=== PATIENT | male | born 1945 | race Caucasian/White ===

== ENCOUNTER 2024-07-16 08:35 | Day surgery (SDC) | payer MEDICARE, BC ==
[2024-07-16 10:01] VITALS: RESP 16; TEMP 97.1
[2024-07-16] MEDS: IV FLUID CONTINUATION 1,000 ML IV ONE (10:05)
[2024-07-16] MEDS: LACTATED RINGERS 1,000 ML IV SCH (10:17)
[2024-07-16] MEDS ORDERED: PROPOFOL 10 MG/ML 20 ML VIAL IV ONE (11:00)
[2024-07-16] MEDS ORDERED: LIDOCAINE HCL/PF 20 MG/ML 10 ML AMP ONE (11:00)
--- NOTE | 2024-07-16 11:15 | P.PCN ---
Date of Procedure: 07/16/24 Procedure(s) Performed: BRIEF HISTORY: Patient is a 78-year-old, pleasant, white man scheduledupo for an upper endoscopy as a part of evaluation of progressive dysphagia to solids and weight loss of 30 pounds in the last 1 year duration. PROCEDURE PERFORMED: Esophagogoscopy with multiple biopsies. PREOPERATIVE DIAGNOSIS: Progressive dysphagia to solids and weight loss of 1 year duration. IV sedation per anesthesia. PROCEDURE: After informed consent was obtained, the patient was brought into the endoscopy unit. IV sedation was administered by Anesthesia under continuous monitoring. Initially the Olympus GIF-140 video endoscope was inserted into the mouth. Esophagus intubated without any difficulty. It was gradually advanced into the distal esophagus. There was a tight distal esophageal stricture with thickened mucosal folds extending from 35 to 40 cm from the incisors and the scope could not be advanced beyond the esophageal stricture. Biopsies were done from the distal esophagus/esophageal stricture.. The rest of the esophagus appeared normal and the patient tolerated the procedure well. IMPRESSION: 1. Tight distal esophageal stricture extending from 35 to 40 cm from the incisors with thickened mucosal folds and friable mucosa suspicious for malignancy s/p multiple biopsies. 2. Scope could not be advanced through the esophageal stricture into the stomach. RECOMMENDATIONS: The findings of this examination were discussed with the patient as well as his family. He was advised to follow with the biopsy results. He will be seen in the office in 1 week. In the meantime he was advised to continue with liquids and soft food..
[2024-07-16 11:34] VITALS: BP 146/80; PULSE 89
== END 2024-07-16 11:53 | disposition home or self-care (01) ==
LOC: ORWHC2ENDO 08:35
PROVIDERS: ATTEND Internal Medicine Gastroenterology
DX: K22.2 Esophageal obstruction (principal); I10 Essential (primary) hypertension; F17.210 Nicotine dependence, cigarettes, uncomplicated; F41.9 Anxiety disorder, unspecified; K21.9 Gastro-esophageal reflux disease without esophagitis; Z79.899 Other long term (current) drug therapy
CPT/HCPCS: 88305; 43202; J2003; J2704; 88341; 88342

== ENCOUNTER → 2024-08-23 | Outpatient (CLI) | payer MEDICARE, BC ==
--- NOTE | 2024-08-23 17:39 | CA ---
Transthoracic Echo Report Name: Jaren Villalobos Age: 79 Gender: M : 1945 Exam Date: 08/23/2024 14:47 Exam Location: [facility] Ht (in): 67 Wt (lb): 182 Ordering Physician: Manjit Faith MD Attending/Referring Phys: Tool And Die Machinist Courtney Pierre RDCS Procedure CPT: Indications: Z01.818 ENCOUNTER FOR OTHER PREPROCEDURAL EXAMINAT Cardiac Hx: Technical Quality: Fair Contrast 1: Total Dose (mL): Contrast 2: Total Dose (mL): MEASUREMENTS (Male / Female) Normal Values 2D ECHO LV Diastolic Diameter PLAX 5.2 cm 4.2 - 5.9 / 3.9 - 5.3 cm LV Systolic Diameter PLAX 3.7 cm IVS Diastolic Thickness 0.7 cm 0.6 - 1.0 / 0.6 - 0.9 cm LVPW Diastolic Thickness 0.9 cm 0.6 - 1.0 / 0.6 - 0.9 cm LV Relative Wall Thickness 0.3 LVOT Diameter 2.3 cm LV Diastolic Volume MOD BP 101.7 cm??? 67 - 155 / 56 - 104 cm??? LV Systolic Volume MOD BP 43.7 cm??? 22 - 58 / 19 - 49 cm??? LV Ejection Fraction MOD BP 57.0 % >= 55 % LV Cardiac Index MOD BP 2904.4 cm???/min???m??? LV Diastolic Volume MOD 4C 109.5 cm??? LV Systolic Volume MOD 4C 47.1 cm??? LV Ejection Fraction MOD 4C 57.0 % LV Cardiac Index MOD 4C 3127.3 cm???/min???m??? LV Diastolic Length 4C 8.6 cm LV Systolic Length 4C 8.1 cm LV Diastolic Volume MOD 2C 94.0 cm??? LV Systolic Volume MOD 2C 36.0 cm??? LV Ejection Fraction MOD 2C 61.7 % LV Cardiac Index MOD 2C 2904.6 cm???/min???m??? LV Diastolic Length 2C 8.6 cm LV Systolic Length 2C 7.1 cm LA Volume 39.4 cm??? 18 - 58 / 22 - 52 cm??? LA Volume Index 19.7 cm???/m??? 16 - 28 cm???/m??? DOPPLER AV Peak Velocity 107.2 cm/s AV Peak Gradient 4.6 mmHg AV Mean Velocity 76.5 cm/s AV Mean Gradient 2.5 mmHg AV Velocity Time Integral 18.5 cm LVOT Peak Velocity 96.0 cm/s LVOT Peak Gradient 3.7 mmHg LVOT Velocity Time Integral 16.2 cm LVOT Stroke Volume 66.8 cm??? LVOT Stroke Volume Index 34.4 ml/m??? LVOT Cardiac Index 3347.0 cm???/min???m??? AV Area Cont Eq vti 3.6 cm??? AV Area Cont Eq pk 3.7 cm??? MV Area PHT 9.0 cm??? Mitral E Point Velocity 64.9 cm/s Mitral A Point Velocity 83.6 cm/s Mitral E to A Ratio 0.8 MV Deceleration Time 84.2 ms PV Peak Velocity 80.7 cm/s PV Peak Gradient 2.6 mmHg FINDINGS Left Ventricle Left ventricular ejection fraction is estimated at 55-60 %. Left ventricular wall thickness normal. Left ventricular cavity size normal. No obvious regional wall motion abnormalities. Right Ventricle Normal right ventricular size and function. Unable to estimate the right ventricular systolic pressure. Right Atrium Normal right atrial size. Left Atrium Normal left atrial size. Mitral Valve Structurally normal mitral valve. No evidence for mitral valve prolapse. No mitral stenosis. Trace mitral regurgitation.mitral annular calcification. Aortic Valve Trileaflet aortic valve. Diffuse thickening (sclerosis) of the aortic valve cusps without reduced excursion. No aortic valve stenosis or regurgitation. Tricuspid Valve Structurally normal tricuspid valve. No tricuspid stenosis. Trace tricuspid regurgitation. Pulmonic Valve Pulmonic valve not well visualized. No pulmonic stenosis. Trace pulmonic regurgitation. Pericardium No pericardial effusion. Aorta Normal size aortic root and proximal ascending aorta. CONCLUSIONS 1. Normal left ventricular size and systolic function 2. Trace mitral and tricuspid regurgitation Previewed by: Dr. Morena Ashton MD (Electronically Signed) Final Date: 23 August 2024 17:38
== END | disposition home or self-care (01) ==
LOC: RADECHMAIN 14:46
PROVIDERS: ATTEND Internal Medicine Hematology & Oncology
DX: Z01.818 Encounter for other preprocedural examination (principal)
CPT/HCPCS: 93306

== ENCOUNTER 2024-09-11 14:39 | Inpatient (IN) | payer MEDICARE, BC ==
--- NOTE | 2024-09-11 15:46 | ED ---
Recheck HPI - General Chief Complaint: Recheck/Abnormal Lab/Rx Stated Complaint: Low hemoglobin Time Seen by Provider: 09/11/24 15:42 Source: patient, family, EMS, RN notes reviewed Mode of arrival: EMS - History of Present Illness Initial Comments: This is a 79 year old male sent by Dr. Faith for low hemoglobin. 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 He began chemotherapy last Monday. States he has been having black stools for 5 weeks now which began right after an iron transfusion 5 weeks ago. States his hemoglobin has been steadily dropping since then. He states he is very weak which is abnormal for him. He needs assistance by his daughter for understanding. Denies chest pain, shortness of breath, abdominal pain. Denies blood thinners or previous abdominal surgeries. - Related Data Home Medications Medication Instructions Recorded Confirmed Fluticasone Nasal Dennard [Flonase 1 spray INHALATION DIRECTED 07/11/24 07/16/24 Nasal Dennard] Fluticasone Propion/Salmeterol 1 inh INHALATION BID 07/11/24 07/16/24 [Fluticasone-Salmeterol 250-50] Furosemide [Lasix] 40 mg PO DAILY 07/11/24 07/16/24 Losartan Potassium 100 mg PO DAILY 07/11/24 07/16/24 Omeprazole 20 mg PO DAILY 07/11/24 07/16/24 Ondansetron [Zofran] 4 mg PO Q8HR PRN 07/11/24 07/16/24 ALPRAZolam [Xanax] 0.25 mg PO BID PRN 09/11/24 09/11/24 Triamcinolone 0.1% Cream [Kenalog 1 applicatio TOPICAL BID 09/11/24 09/11/24 0.1% Cream] Allergies Allergy/AdvReac Type Severity Reaction Status Date / Time aspirin Allergy Unknown Verified 09/11/24 17:39 NSAIDS (Non-Steroidal Allergy Unknown Verified 09/11/24 17:39 Anti-Inflamma Review of Systems ROS Statement: Those systems with pertinent positive or pertinent negative responses have been documented in the HPI. ROS Other: All systems not noted in ROS Statement are negative. Past Medical History Past Medical History: GERD/Reflux, Hypertension Additional Past Medical History / Comment(s): esophogeal cancer, july 07, 2024 History of Any Multi-Drug Resistant Organisms: None Reported Past Surgical History: No Surgical Hx Reported Past Anesthesia/Blood Transfusion Reactions: No Reported Reaction Smoking Status: Current every day smoker Past Alcohol Use History: None Reported Past Drug Use History: None Reported - Past Family History Mother Family Medical History: Cancer Additional Family Medical History / Comment(s): leukemia General Exam General appearance: alert, in no apparent distress Head exam: Present: atraumatic, normocephalic, normal inspection Eye exam: Present: normal appearance, PERRL, EOMI. Absent: scleral icterus, conjunctival injection, periorbital swelling ENT exam: Present: normal exam, mucous membranes moist Neck exam: Present: normal inspection. Absent: tenderness, meningismus, lymphadenopathy Respiratory exam: Present: normal lung sounds bilaterally. Absent: respiratory distress, wheezes, rales, rhonchi, stridor Cardiovascular Exam: Present: regular rate, normal rhythm, normal heart sounds. Absent: systolic murmur, diastolic murmur, rubs, gallop, clicks GI/Abdominal exam: Present: soft, normal bowel sounds. Absent: distended, tenderness, guarding, rebound, rigid Rectal exam: Present: normal inspection, other (TURBINE ASSEMBLER Mane present for rectal examination, no gross blood present on examination) Neurological exam: Present: alert, oriented X3 Psychiatric exam: Present: normal affect, normal mood Skin exam: Present: warm, dry, intact, normal color. Absent: rash Course Vital Signs 09/11/24 09/11/24 09/11/24 14:41 16:13 16:30 Temperature 97.1 F L 97.1 F L Pulse Rate 83 69 75 Respiratory 16 16 Rate Blood Pressure 95/52 109/73 101/47 O2 Sat by Pulse 97 97 Oximetry 09/11/24 09/11/24 16:45 17:05 Temperature 96.8 F L 97.5 F L Pulse Rate 75 70 Respiratory 16 16 Rate Blood Pressure 101/44 104/51 O2 Sat by Pulse 97 97 Oximetry Medical Decision Making - Medical Decision Making Was pt. sent in by a medical professional or institution (, PA, DERRICK WORKER, urgent care, hospital, or shelter...) When possible be specific @ -Sent by Dr. Faith for low hemoglobin Did you speak to anyone other than the patient for history (EMS, parent, family, police, friend...)? What history was obtained from this source @ -Daughter supplemented history Did you review nursing and triage notes (agree or disagree)? Why? @ -I reviewed and agree with nursing and triage notes Were old charts reviewed (outside hosp., previous admission, EMS record, old EKG, old radiological studies, urgent care reports/EKG's, shelter records)? Report findings @ -No old charts were reviewed Differential Diagnosis (chest pain, altered mental status, abdominal pain women, abdominal pain men, vaginal bleeding, weakness, fever, dyspnea, syncope, headache, dizziness, GI bleed, back pain, seizure, CVA, palpatations, mental health, musculoskeletal)? @ -Differential GI Bleed: Esophageal varices, aortoenteric fistula, Aditi-Molina, gastritis, peptic ulcer disease, diverticulosis, inflammatory bowel disease, hemorrhoids, fissure, colitis, malignancy, Meckel's diverticulum, this is not meant to be an all- inclusive list. EKG interpreted by me (3pts min.). @ -As above X-rays interpreted by me (1pt min.). @ -None done CT interpreted by me (1pt min.). @ -CT abdomen pelvis reveals no definitive evidence for gastrointestinal hemorrhage, hyperemia of mucosa, mild sigmoid colon thickening, distended bladder, colonic diverticulosis U/S interpreted by me (1pt. min.). @ -None done What testing was considered but not performed or refused? (CT, X-rays, U/S, labs)? Why? @ -None What meds were considered but not given or refused? Why? @ -None Did you discuss the management of the patient with other professionals (professionals i.e. , PA, DERRICK WORKER, lab, RT, psych nurse, social media executive, tax lawyer, teacher, community service officer, director case management)? Give summary @ -I spoke with Dr. Trammell who recommends admission with consultation to oncology and GI. I then spoke with Isela from [facility] who accepts admission for low hemoglobin Was smoking cessation discussed for >3mins.? @ -No Was critical care preformed (if so, how long)? @ -No Were there social determinants of health that impacted care today? How? (Homelessness, low income, unemployed, alcoholism, drug addiction, transportation, low edu. Level, literacy, decrease access to med. care, assisted, rehab)? @ -No Was there de-escalation of care discussed even if they declined (Discuss DNR or withdrawal of care, Hospice)? DNR status @ -No What co-morbidities impacted this encounter? (DM, HTN, Smoking, COPD, CAD, Cancer, CVA, ARF, Chemo, Hep., AIDS, mental health diagnosis, sleep apnea, morbid obesity)? @ -Esophageal cancer Was patient admitted / discharged? Hospital course, mention meds given and route, prescriptions, significant lab abnormalities, going to OR and other pertinent info. @ -Admitted. This is a 79-year-old male with history of esophageal cancer presenting for low hemoglobin. Patient started chemotherapy last week, also endorses black stools for 5 weeks. Denies abdominal pain. Hemoglobin is 5.7, hematocrit 17.5. Sodium 127, BUN 37. Stool occult test positive. patient was given 2 units of red blood cells. CT abdomen pelvis reveals no definitive evidence for GI hemorrhage. I spoke with Dr. Trammell who recommends admission with consultation to oncology and GI services. I then spoke with Isela from [facility] who accepts admission. Case was discussed with my ED attending Dr. Son. Undiagnosed new problem with uncertain prognosis? @ -No Drug Therapy requiring intensive monitoring for toxicity (Heparin, Nitro, Insulin, Cardizem)? @ -No Were any procedures done? @ -No Diagnosis/symptom? @ -Low hemoglobin Acute, or Chronic, or Acute on Chronic? @ -Acute Uncomplicated (without systemic symptoms) or Complicated (systemic symptoms)? @ -Complicated Side effects of treatment? @ -No Exacerbation, Progression, or Severe Exacerbation? @ -No Poses a threat to life or bodily function? How? (Chest pain, USA, MT, pneumonia, PE, COPD, DKA, ARF, appy, cholecystitis, CVA, Diverticulitis, Homicidal, Suicidal, threat to staff... and all critical care pts) @ -Yes - Lab Data Result diagrams: 09/11/24 15:31 09/11/24 15:31 Lab Results 09/11/24 09/11/24 09/11/24 Range/Units 15:00 15:10 15:31 WBC 5.3 (3.8-10.6) k/uL RBC 2.03 L (4.30-5.90) m/uL Hgb 5.7 L* (13.0-17.5) gm/dL Hct 17.5 L* (39.0-53.0) % MCV 86.1 (80.0-100.0) fL MCH 28.2 (25.0-35.0) pg MCHC 32.8 (31.0-37.0) g/dL RDW 16.8 H (11.5-15.5) % Plt Count 276 (150-450) k/uL MPV 9.5 Neutrophils % 69 % Lymphocytes % 29 % Monocytes % 1 % Eosinophils % 1 % Basophils % 0 % Neutrophils # 3.6 (1.3-7.7) k/uL Lymphocytes # 1.5 (1.0-4.8) k/uL Monocytes # 0.0 (0-1.0) k/uL Eosinophils # 0.0 (0-0.7) k/uL Basophils # 0.0 (0-0.2) k/uL Anisocytosis Slight PT (10.0-12.5) sec INR (<1.2) APTT (22.0-30.0) sec Sodium (137-145) mmol/L Potassium (3.5-5.1) mmol/L Chloride (98-107) mmol/L Carbon Dioxide (22-30) mmol/L Anion Gap mmol/L BUN (9-20) mg/dL Creatinine (0.66-1.25) mg/dL Est GFR (CKD-EPI)AfAm (>60 ml/min/1.73 sqM) Est GFR (CKD-EPI)NonAf (>60 ml/min/1.73 sqM) Glucose (74-99) mg/dL Calcium (8.4-10.2) mg/dL Total Bilirubin (0.2-1.3) mg/dL AST (17-59) U/L ALT (4-49) U/L Alkaline Phosphatase (38-126) U/L Total Protein (6.3-8.2) g/dL Albumin (3.5-5.0) g/dL Stool Occult Blood (Negative) Blood Type B Positive Blood Type Confirm B Positive Blood Type Recheck No Previous Record Bld Type Recheck Status CABO Indicated Antibody Screen NEGATIVE Crossmatch See Detail Spec Expiration Date 09/14/2024 - 229909/11/24 09/11/2425 Range/Units 15:31 15:47 17:12 WBC (3.8-10.6) k/uL RBC (4.30-5.90) m/uL Hgb (13.0-17.5) gm/dL Hct (39.0-53.0) % MCV (80.0-100.0) fL MCH (25.0-35.0) pg MCHC (31.0-37.0) g/dL RDW (11.5-15.5) % Plt Count (150-450) k/uL MPV Neutrophils % % Lymphocytes % % Monocytes % % Eosinophils % % Basophils % % Neutrophils # (1.3-7.7) k/uL Lymphocytes # (1.0-4.8) k/uL Monocytes # (0-1.0) k/uL Eosinophils # (0-0.7) k/uL Basophils # (0-0.2) k/uL Anisocytosis PT 9.8 L (10.0-12.5) sec INR 0.9 (<1.2) APTT 23.5 (22.0-30.0) sec Sodium 127 L (137-145) mmol/L Potassium 5.9 H (3.5-5.1) mmol/L Chloride 98 (98-107) mmol/L Carbon Dioxide 25 (22-30) mmol/L Anion Gap 4 mmol/L BUN 37 H (9-20) mg/dL Creatinine 0.68 (0.66-1.25) mg/dL Est GFR (CKD-EPI)AfAm >90 (>60 ml/min/1.73 sqM) Est GFR (CKD-EPI)NonAf >90 (>60 ml/min/1.73 sqM) Glucose 99 (74-99) mg/dL Calcium 8.0 L (8.4-10.2) mg/dL Total Bilirubin 0.6 (0.2-1.3) mg/dL AST 34 (17-59) U/L ALT 25 (4-49) U/L Alkaline Phosphatase 112 (38-126) U/L Total Protein 5.2 L (6.3-8.2) g/dL Albumin 2.6 L (3.5-5.0) g/dL Stool Occult Blood Positive (Negative) Blood Type Blood Type Confirm Blood Type Recheck Bld Type Recheck Status Antibody Screen Crossmatch Spec Expiration Date - EKG Data -: EKG Interpreted by Me EKG Comments: EKG reveals normal sinus rhythm with occasional changes. Ventricular rate 72 bpm, [place] interval 194, QRS duration 76, QT/QTc 403/428 Disposition Clinical Impression: Low hemoglobin, Black stools Disposition: ADMITTED IP TO THIS HOSP Referrals: Jose Miguel Crabtree MD [Primary Care Provider] - 1-2 days Time of Disposition: 18:23
[2024-09-11 15:55] LABS: ALT 25 U/L (4-49); AST 34 U/L (17-59); African American GFR (CKD) >90 (>60 ml/min/1.73 sqM); Albumin 2.6 g/dL (3.5-5.0); Alkaline Phosphatase 112 U/L (38-126); Anion Gap 4 mmol/L; Blood Urea Nitrogen 37 mg/dL (9-20); Carbon Dioxide 25 mmol/L (22-30); Chloride 98 mmol/L (98-107); Glucose 99 mg/dL (74-99); Non-African American GFR(CKD) >90 (>60 ml/min/1.73 sqM); Sodium 127 mmol/L (137-145); Total Bilirubin 0.6 mg/dL (0.2-1.3); Total Protein 5.2 g/dL (6.3-8.2)
[2024-09-11 16:01] LABS: Anisocytosis Slight; Basophils % (A) 0 %; Eosinophils % (A) 1 %; Lymphocytes # (A) 1.5 k/uL (1.0-4.8); Lymphocytes % (A) 29 %; MCH 28.2 pg (25.0-35.0); MCHC 32.8 g/dL (31.0-37.0); MCV 86.1 fL (80.0-100.0); Mean Platelet Volume 9.5; Monocytes % (A) 1 %; Neutrophils # (A) 3.6 k/uL (1.3-7.7); Neutrophils % (A) 69 %; Platelet Count 276 k/uL (150-450); RBC 2.03 m/uL (4.30-5.90); RDW 16.8 % (11.5-15.5); WBC 5.3 k/uL (3.8-10.6)
[2024-09-11 16:03] LABS: HCT 17.5 % (39.0-53.0); HGB 5.7 gm/dL (13.0-17.5)
[2024-09-11 16:13] LABS: Potassium 5.9 mmol/L (3.5-5.1)
[2024-09-11] MEDS ORDERED: ONDANSETRON 4 MG/2 ML VIAL IVP PRN (18:18)
[2024-09-11] MEDS ORDERED: NALOXONE 0.4 MG/ML 1 ML VIAL IV PRN (18:18)
[2024-09-11 18:47] LABS: INR 0.9 (<1.2); Partial Thromboplastin Time 23.5 sec (22.0-30.0); Prothrombin Time 9.8 sec (10.0-12.5)
[2024-09-11] MEDS: ACETAMINOPHEN TAB 500 MG TAB PO STA (18:52)
[2024-09-11] MEDS: PANTOPRAZOLE 40 MG/10 ML VIAL IV ONE (18:53)
--- NOTE | 2024-09-11 19:19 | CT ---
EXAMINATION TYPE: CT noncontrasted abdomen and pelvis. CT angio abdomen pelvis DATE OF EXAM: 09/11/2024 6:41 PM COMPARISON: None. CLINICAL INDICATION: Male, 79 years old with history of black stools, TECHNIQUE: CT angio abdomen pelvis CT noncontrast abdomen pelvis followed by CT angiogram. Multiple thin slice sub-millimeter images were obtained before and after administration of contrast. 3-D reconstructed images and maximum intensity projection images were obtained. CT angio abdomen p rito CT Contrast: Contrast used:100 ml mL of Isovue 370 with IV Contrast, Oral contrast used: without Oral Contrast None CT DLP: 2747.5 mGycm, Automated exposure control for dose reduction was used. FINDINGS: CTA Abdomen and pelvis: The abdominal aorta does not demonstrate aneurysmal dilatation. Atherosclero tic plaquing is identified within the abdominal aorta. The origins of the superior mesenteric artery , renal arteries, inferior mesenteric artery, and celiac axis are patent. The iliac vessels are norm al in morphology LOWER CHEST: Trace bilateral pleural effusions. Circumferential thickening of the distal esophagus wi th hyperemia. There is a left paraesophageal lymph node measuring up to 13 mm LIVER: Unremarkable GALLBLADDER AND BILE DUCTS: Multiple gallstones are in the gallbladder lumen somewhat trapped gas. PANCREAS: Unremarkable. SPLEEN: Unremarkable. ADRENAL GLANDS: Unremarkable. KIDNEYS AND URETERS: No evidence of hydronephrosis or renal calculus. The ureters are unremarkable. PELVIS BLADDER: Suspected large left lateral posterior bladder diverticula. REPRODUCTIVE: Prostate is enlarged in size measuring ??cm in transverse dimension. ABDOMEN & PELVIS STOMACH AND BOWEL: Evaluation of the gastrointestinal tract demonstrates no evidence of high density hemorrhage on arterial phase or pooling of blood on delayed phases. No evidence of bowel obstruction. Scattered colonic diverticula. Hyperemia of the gastric mucosa with wall thickening particularly the gastric antrum and duodenal bulb. Large amount of stool is in the cecum and ascending colon. PERITONEUM: No evidence of pneumoperitoneum or free fluid. VASCULATURE: No evidence of aortic aneurysm. MUSCULOSKELETAL: Moderate disc degeneration changes are present throughout the thoracolumbar spine. D egeneration changes of the hips with joint space tearing or perforation subchondral cystic change. LYMPH NODES: No gross evidence for lymphadenopathy. SOFT TISSUE/ABDOMINAL WALL: Bilateral fat-containing inguinal hernias. IMPRESSION: 1. No definitive evidence for gastrointestinal hemorrhage. 2. Hyperemia of the gastric mucosa correlate for gastritis with wall thickening correlate for gastri tis. Consider endoscopy for evaluation. 3. Circumferential wall thickening of the distal esophagus with hyperemia of the mucosa. Enlarged pa raesophageal lymph node is present which could be reactive. Short-term follow-up up to exclude malign neelima recommended. 4. There is some mild thickening of the sigmoid colon with multiple diverticula present. No evidence for hemorrhage. Correlate for colitis. 5. Distended bladder with bladder diverticula 6. Colonic diverticulosis. 7. Trace bilateral pleural effusions. 8. Colonic diverticulosis. 9. Cholelithiasis. [facility], , 09/11/2024 7:17 PM
[2024-09-11] MEDS: PANTOPRAZOLE 40 MG/10 ML VIAL IV SCH (23:00)
[2024-09-12 07:08] LABS: Basophils % (A) 0 %; Eosinophils % (A) 1 %; HCT 24.8 % (39.0-53.0); Lymphocytes # (A) 1.1 k/uL (1.0-4.8); Lymphocytes % (A) 34 %; MCH 30.1 pg (25.0-35.0); MCHC 34.4 g/dL (31.0-37.0); MCV 87.6 fL (80.0-100.0); Mean Platelet Volume 9.2; Monocytes % (A) 1 %; Neutrophils % (A) 64 %; Platelet Count 175 k/uL (150-450); RBC 2.83 m/uL (4.30-5.90); RDW 15.9 % (11.5-15.5); WBC 3.2 k/uL (3.8-10.6)
[2024-09-12 08:35] LABS: HGB 8.5 gm/dL (13.0-17.5)
[2024-09-12 08:37] LABS: African American GFR (CKD) >90 (>60 ml/min/1.73 sqM); Anion Gap 2 mmol/L; Blood Urea Nitrogen 27 mg/dL (9-20); Calcium 7.9 mg/dL (8.4-10.2); Carbon Dioxide 26 mmol/L (22-30); Chloride 100 mmol/L (98-107); Glucose 90 mg/dL (74-99); Non-African American GFR(CKD) >90 (>60 ml/min/1.73 sqM); Sodium 128 mmol/L (137-145)
[2024-09-12] MEDS: ACETAMINOPHEN TAB 325 MG TAB PO PRN (11:41)
[2024-09-12] MEDS: SODIUM FERRIC GLUCONAT-SUCROSE 125 MG in SODIUM CHLORIDE 0.9% 100 ML IVPB SCH (13:30)
[2024-09-12] MEDS ORDERED: TEMAZEPAM 15 MG CAP PO PRN (14:02)
--- NOTE | 2024-09-12 14:05 | P.CONS ---
History of Present Illness - Reason for Consult Consult date: 09/12/24 Low hemoglobin, black stools Requesting physician: Verenice Pearson - Chief Complaint Anemia - History of Present Illness This a pleasant 79-year-old male with recent diagnosis of poorly differentiated adenocarcinoma of esophagus. He underwent EGD on 07/16/2024 with findings of tight esophageal stricture with thickened mucosal folds and friable mucosa suspicious for malignancy and scope was not able to be advanced through the esophageal stricture into the stomach. Patient was referred outpatient to oncology. He follows with Dr. Alfaro. He is also following with Dr. Vargas radiation oncologist and now Dr. Garcia as well out of [place]. States he started his first round of chemo this past Monday. He has been getting iron infusions and since his iron infusions he has been having black stool. He had blood work done yesterday and was told to come to the emergency department for low hemoglobin. Hemoglobin on admission was 5.7 hematocrit 17.5 platelet count 276,000 INR 0.9. Gastroenterology was consulted for anemia with black stools. He received 2 units of blood with a repeat home hemoglobin today of 8.5. Stool occult blood was positive. He denies any significant abdominal pain, no nausea or vomiting. Review of Systems REVIEW OF SYSTEMS: CARDIOPULMONARY: No chest pain or shortness of breath. Gastrointestinal: No abdominal pain. No nausea or vomiting. No hematemesis, coffee-ground emesis. No rectal bleeding. Reported black stool. GENITOURINARY: No dysuria or hematuria. MUSCULOSKELETAL: Reports normal range of motion. SKIN: No rashes. No jaundice. ENDOCRINE: No chills, fevers. No excessive weight gain or loss. No polydipsia or polyuria. PSYCHIATRIC: Unremarkable. NEUROLOGY: No change in mental status. Denies dizziness, headache. ENT: Vision unremarkable. CONSTITUTIONAL: Weight loss secondary to esophageal cancer.. No fever, chills, night sweats. Past Medical History Past Medical History: GERD/Reflux, Hypertension Additional Past Medical History / Comment(s): esophogeal cancer, july 07, 2024 History of Any Multi-Drug Resistant Organisms: None Reported Past Surgical History: No Surgical Hx Reported Past Anesthesia/Blood Transfusion Reactions: No Reported Reaction Smoking Status: Current every day smoker Past Alcohol Use History: None Reported Past Drug Use History: None Reported - Past Family History Mother Family Medical History: Cancer Additional Family Medical History / Comment(s): leukemia Medications and Allergies Home Medications Medication Instructions Recorded Confirmed Type Fluticasone Nasal [place] [Flonase 1 spray EA NOSTRIL BID 07/11/24 09/11/24 History Nasal [place]] Fluticasone Propion/Salmeterol 1 puff INHALATION RT-BID 07/11/24 09/11/24 History [Fluticasone-Salmeterol 250-50] Furosemide [Lasix] 40 mg PO DAILY 07/11/24 09/11/24 History Losartan Potassium 100 mg PO DAILY 07/11/24 09/11/24 History Omeprazole 20 mg PO DAILY 07/11/24 09/11/24 History Ondansetron [Zofran] 8 mg PO Q8HR PRN 07/11/24 09/11/24 History ALPRAZolam [Xanax] 0.25 mg PO BID PRN 09/11/24 09/11/24 History Triamcinolone 0.1% Cream [Kenalog 1 applicatio TOPICAL BID 09/11/24 09/11/24 History 0.1% Cream] Allergies Allergy/AdvReac Type Severity Reaction Status Date / Time aspirin Allergy Unknown Verified 09/11/24 17:39 NSAIDS (Non-Steroidal Allergy Unknown Verified 09/11/24 17:39 Anti-Inflamma Physical Exam Vitals: Vital Signs Temp Pulse Resp BP Pulse Ox 09/12/24 08:28 92 20 99/46 94 L 09/12/24 06:29 92 16 102/57 98 09/12/24 04:00 90 16 99/50 99 09/12/24 02:00 80 15 116/46 96 09/12/24 00:00 75 16 98/44 97 09/11/24 22:57 97.9 F 81 17 107/51 99 09/11/24 21:13 97.6 F 84 16 102/51 100 09/11/24 20:53 97.6 F 68 17 91/56 99 09/11/24 20:43 98.2 F 77 15 105/53 95 09/11/24 19:49 98.3 F 80 16 99/45 09/11/24 19:27 97.7 F 74 16 109/78 97 09/11/24 17:05 97.5 F L 70 16 104/51 97 09/11/24 16:45 96.8 F L 75 16 101/44 97 09/11/24 16:30 97.1 F L 75 16 101/47 97 09/11/24 16:13 69 109/73 09/11/24 14:41 97.1 F L 83 16 95/52 97 Intake and Output 09/11/24 09/12/24 09/12/24 22:59 06:59 14:59 Intake Total 620 Output Total 400 Balance 620 -400 Intake: Blood Product 620 Rc As-1 Unit 310 [id number] Rc As-1 Unit 310 [id number] Output: Other 400 General appearance: The patient is alert, oriented, appears in no acute distress. HET: Head is normocephalic and atraumatic. Conjunctiva pink. Sclera anicteric. Neck: Supple without lymphadenopathy. Trachea midline. Heart: Regular. Lungs: Equal expansion, normal respiratory effort. Abdomen: Soft, nontender, nondistended. Skin: No rashes. No jaundice. Extremities: Normal skin color and turgor. No pedal edema. Neurological: No focal deficits. Alert and oriented x3. Results CBC & Chem 7: 09/12/24 06:21 09/12/24 06:21 Labs: Abnormal Lab Results - Last 24 Hours (Table) 09/11/24 09/11/24 09/11/24 Range/Units 15:00 15:31 15:31 WBC (3.8-10.6) k/uL RBC 2.03 L (4.30-5.90) m/uL Hgb 5.7 L* (13.0-17.5) gm/dL Hct 17.5 L* (39.0-53.0) % RDW 16.8 H (11.5-15.5) % PT (10.0-12.5) sec Sodium 127 L (137-145) mmol/L Potassium 5.9 H (3.5-5.1) mmol/L BUN 37 H (9-20) mg/dL Calcium 8.0 L (8.4-10.2) mg/dL Total Protein 5.2 L (6.3-8.2) g/dL Albumin 2.6 L (3.5-5.0) g/dL Crossmatch See Detail 0209/12/24 09/12/24 Range/Units 17:12 06:21 06:21 WBC 3.2 L (3.8-10.6) k/uL RBC 2.83 L (4.30-5.90) m/uL Hgb 8.5 L D (13.0-17.5) gm/dL Hct 24.8 L (39.0-53.0) % RDW 15.9 H (11.5-15.5) % PT 9.8 L (10.0-12.5) sec Sodium 128 L (137-145) mmol/L Potassium (3.5-5.1) mmol/L BUN 27 H (9-20) mg/dL Calcium 7.9 L (8.4-10.2) mg/dL Total Protein (6.3-8.2) g/dL Albumin (3.5-5.0) g/dL Crossmatch Comments: CTA abdomen pelvis reports no definitive evidence for gastrointestinal hem orrhage. Hyperemia of the gastric mucosa correlate for gastritis with wall thickening correlate for gastritis consider endoscopy for further evaluation. Circumferential wall thickening of the distal esophagus with hyperemia of the mucosa. Enlarged paraesophageal lymph node is present which could be reactive. Short-term follow-up to exclude malignancy recommended. There is some mild thickening of the sigmoid colon with multiple diverticula present. No evidence of hemorrhage. Correlate for colitis. Distended bladder with bladder diverticula. Colonic diverticulosis. Trace bilateral pleural effusions. Colonic diverticulosis and cholelithiasis. Assessment and Plan (1) Anemia Narrative/Plan: 79-year-old male recently diagnosed with esophageal cancer undergoing chemotherapy with his first treatment this past Monday had follow-up blood work noted to have a low hemoglobin and was sent in for blood transfusion. He has been reportedly having black stools since he had his second iron infusion. Likely he is having some bleeding and/or oozing from esophageal mass however would not recommend endoscopic evaluation at this time and would treat with medical management and transfuse as needed. Current Visit: Yes Status: Acute Code(s): D64.9 - ANEMIA, UNSPECIFIED SNOMED Code(s): 128050991 (2) Esophageal cancer Current Visit: Yes Status: Acute Code(s): C15.9 - MALIGNANT NEOPLASM OF ESOPHAGUS, UNSPECIFIED SNOMED Code(s): 959507296 Plan: 1. Continue symptomatic and supportive care 2. Daily CBC, transfuse for hemoglobin less than 7 3. Protonix 40 mg daily 4. Recommend full liquid diet 5. No plans on endoscopic evaluation, treat anemia with medical management, tra nsfuse as needed 6. Oncology on consultation appreciate their recommendations Thank you for this consultation, we will continue to follow. Dr. Gerard Aquino I agree with the dictator's note, documented as a scribe by Mary Marsh.
[2024-09-12] MEDS: NICOTINE 14MG/24HR PATCH TRANSDERM SCH (14:33)
[2024-09-12] MEDS ORDERED: ALPRAZolam 0.25 MG TAB PO PRN (14:35)
[2024-09-12] MEDS: ZINC OXIDE PASTE (Z-GUARD) 1 APPLIC TOPICAL SCH (14:36)
[2024-09-12] MEDS: FUROSEMIDE 40 MG TAB PO SCH (14:36)
--- NOTE | 2024-09-12 19:42 | P.CONS ---
History of Present Illness - Reason for Consult Consult date: 09/12/24 anemia, esophageal cancer Requesting physician: Verenice Pearson - Chief Complaint low hgb - History of Present Illness Mr Arceo is a 79 year old male with a significant history of esophageal cancer, who follows with Dr. Faith. The patient states that he had noted a change in his swallowing, in retrospect since about 02/27. He was having difficulty with large solid boluses, such as meat, where he seemed to have increased difficulty getting them down. In addition after eating such foods, he will typically developed significant regurgitation. The patient therefore switched his diet to soft her, and semisolid foods. He lost a significant amount of weight, in the range of around 40+ pounds. He did mention this to his PCP, who then referred him to GI. The patient had an EGD on 07/16/24. He was found to have a tight distal esophageal stricture with thickened mucosal for some friable mucosa. The scope could not be advanced beyond the stricture. Biopsy was po sitive for invasive poorly differentiated adenocarcinoma. Staining indicated low probability of MSI high. HER-2 was 2+, with fish pending. The patient had additional workup with a PET scan, that showed uptake in the primary site, and in small periesophageal lymph nodes. There was note of mild uptake in a left retroperitoneal node that was nonspecific. There was no other evidence of distant disease. They were advised that given the nonspecific description of the left retroperitoneal node, it would be reasonable to refer him to radiation oncology to be assessed for concurrent chemoradiation with curative intent. The rationale for the same, as well as logistics were discussed in detail. I also discussed the standard chemotherapy regimen of weekly carboplatin and Taxol to be given concurrently with radiation. After further discussion pt was referred for proton beam therapy, currently awaiting to start, in the meantime he was started on systemic treatment with Carbo/taxol/hercpetin, completing cycle 1 on 09/06/24. Patient also received 2 doses of fereheme, last dose on 08/19/24. Patient was evaluated in clinic on 09/11 was noted to have a hemoglobin of 6.0, patient is also complaining of confusion at which time he was presented to the emergency room for further evaluation. Upon admit hemoglobin is noted at 5.7, 2 units PRBCs were given. Repeat hemoglobin today 8.5. WBC 3.2, platelets 175,000. Creatinine 0.70, GFR greater than 90. Bilirubin LFTs WNL. CTA abdomen pelvis showing no evidence for gastrointestinal hemorrhage. Hyperemia of the gastric mucosa with wall thickening. Surgical ventral wall thickening of the distal esophagus with hyperemia of the mucosa. Mild thickening of the sigmoid colon with multiple diverticula present. Distended bladder with bladder di verticula. Colonic diverticulosis, and cholelithiasis. Patient does report having melanotic stools after receiving IV iron. GI consulted. Patient is alert and answering questions appropriately. Denies pain. He does report he has a decubitus ulcer on his buttocks, wound care has been consulted. Review of Systems 10 point ROS is negative except as stated in the HPI Past Medical History Past Medical History: GERD/Reflux, Hypertension Additional Past Medical History / Comment(s): esophogeal cancer, july 07, 2024 History of Any Multi-Drug Resistant Organisms: None Reported Past Surgical History: No Surgical Hx Reported Past Anesthesia/Blood Transfusion Reactions: No Reported Reaction Smoking Status: Current every day smoker Past Alcohol Use History: None Reported Past Drug Use History: None Reported - Past Family History Mother Family Medical History: Cancer Additional Family Medical History / Comment(s): leukemia Medications and Allergies Home Medications Medication Instructions Recorded Confirmed Type Fluticasone Nasal [place] [Flonase 1 spray EA NOSTRIL BID 07/11/24 09/11/24 History Nasal [place]] Fluticasone Propion/Salmeterol 1 puff INHALATION RT-BID 07/11/24 09/11/24 History [Fluticasone-Salmeterol 250-50] Furosemide [Lasix] 40 mg PO DAILY 07/11/24 09/11/24 History Losartan Potassium 100 mg PO DAILY 07/11/24 09/11/24 History Omeprazole 20 mg PO DAILY 07/11/24 09/11/24 History Ondansetron [Zofran] 8 mg PO Q8HR PRN 07/11/24 09/11/24 History ALPRAZolam [Xanax] 0.25 mg PO BID PRN 09/11/24 09/11/24 History Triamcinolone 0.1% Cream [Kenalog 1 applicatio TOPICAL BID 09/11/24 09/11/24 History 0.1% Cream] Allergies Allergy/AdvReac Type Severity Reaction Status Date / Time aspirin Allergy Unknown Verified 09/11/24 17:39 NSAIDS (Non-Steroidal Allergy Unknown Verified 09/11/24 17:39 Anti-Inflamma Physical Exam Vitals: Vital Signs Temp Pulse Resp BP Pulse Ox 09/12/24 08:28 92 20 99/46 94 L 09/12/24 06:29 92 16 102/57 98 09/12/24 04:00 90 16 99/50 99 09/12/24 02:00 80 15 116/46 96 09/12/24 00:00 75 16 98/44 97 09/11/24 22:57 97.9 F 81 17 107/51 99 09/11/24 21:13 97.6 F 84 16 102/51 100 09/11/24 20:53 97.6 F 68 17 91/56 99 09/11/24 20:43 98.2 F 77 15 105/53 95 09/11/24 19:49 98.3 F 80 16 99/45 09/11/24 19:27 97.7 F 74 16 109/78 97 09/11/24 17:05 97.5 F L 70 16 104/51 97 09/11/24 16:45 96.8 F L 75 16 101/44 97 09/11/24 16:30 97.1 F L 75 16 101/47 97 09/11/24 16:13 69 109/73 09/11/24 14:41 97.1 F L 83 16 95/52 97 Intake and Output 09/11/24 09/12/24 09/12/24 22:59 06:59 14:59 Intake Total 620 Output Total 400 Balance 620 -400 Intake: Blood Product 620 As-1 Unit 310 [id number] As-1 Unit 310 [id number] Output: Other 400 - Constitutional General appearance: average body habitus, no acute distress - EENT Eyes: anicteric sclerae, EOMI ENT: hearing grossly normal - Respiratory breathing is even and unlabored - Cardiovascular skin warm and dry - Gastrointestinal General gastrointestinal: soft, no tenderness - Integumentary Integumentary: no cyanotic, pale - Neurologic Neurologic: CNII-XII intact - Musculoskeletal Musculoskeletal: strength equal bilaterally Results CBC & Chem 7: 09/12/24 06:21 09/12/24 06:21 Labs: Abnormal Lab Results - Last 24 Hours (Table) 09/11/24 09/11/24 09/11/24 Range/Units 15:00 15:31 15:31 WBC (3.8-10.6) k/uL RBC 2.03 L (4.30-5.90) m/uL Hgb 5.7 L* (13.0-17.5) gm/dL Hct 17.5 L* (39.0-53.0) % RDW 16.8 H (11.5-15.5) % PT (10.0-12.5) sec Sodium 127 L (137-145) mmol/L Potassium 5.9 H (3.5-5.1) mmol/L BUN 37 H (9-20) mg/dL Calcium 8.0 L (8.4-10.2) mg/dL Total Protein 5.2 L (6.3-8.2) g/dL Albumin 2.6 L (3.5-5.0) g/dL Crossmatch See Detail 09/11/24 09/12/24 09/12/24 Range/Units 17:12 06:21 06:21 WBC 3.2 L (3.8-10.6) k/uL RBC 2.83 L (4.30-5.90) m/uL Hgb 8.5 L D (13.0-17.5) gm/dL Hct 24.8 L (39.0-53.0) % RDW 15.9 H (11.5-15.5) % PT 9.8 L (10.0-12.5) sec Sodium 128 L (137-145) mmol/L Potassium (3.5-5.1) mmol/L BUN 27 H (9-20) mg/dL Calcium 7.9 L (8.4-10.2) mg/dL Total Protein (6.3-8.2) g/dL Albumin (3.5-5.0) g/dL Crossmatch CT scan - abdomen: report reviewed CT scan - pelvis: report reviewed Assessment and Plan (1) Anemia Current Visit: Yes Status: Acute Priority: High Code(s): D64.9 - ANEMIA, UNSPECIFIED SNOMED Code(s): 043115966 (2) Black stools Current Visit: Yes Status: Acute Priority: High Code(s): K92.1 - [place] SNOMED Code(s): 943916154 (3) Esophageal cancer Current Visit: Yes Status: Acute Priority: High Code(s): C15.9 - MALIGNANT NEOPLASM OF ESOPHAGUS, UNSPECIFIED SNOMED Code(s): 081968189 (4) Low hemoglobin Current Visit: Yes Status: Acute Priority: High Code(s): D64.9 - ANEMIA, UNSPECIFIED SNOMED Code(s): 863956642 Plan: Normocytic anemia, melena: Patient was evaluated in clinic on 09/11 was noted to have a hemoglobin of 6.0, patient was- also complaining of confusion at which time he was presented to the emergency room for further evaluation. Patient does report having melanotic stools after receiving IV iron. Recieved 2 doses feraheme, last dose on 08/19/24 -Upon admit hemoglobin is noted at 5.7, 2 units PRBCs were given. Repeat hemoglobin today 8.5. WBC 3.2, platelets 175,000. -CTA abdomen pelvis showing no evidence for gastrointestinal hemorrhage. Hyperemia of the gastric mucosa with wall thickening. Surgical ventral wall thickening of the distal esophagus with hyperemia of the mucosa. Mild thickening of the sigmoid colon with multiple diverticula present. Distended bladder with bladder diverticula. Colonic diverticulosis, and cholelithiasis. -Iron studies ordered. Parenteral iron ordered x 3 doses -Continue to monitor CBC, transfuse for hgb < 7 or if symptomatic Esophageal carcinoma: -Oncology history as dictated in the HPI -Plan was to initiate concurrent proton beam therapy, currently awaiting to start, in the meantime he was started on systemic treatment with Carbo/taxol/hercpetin, completing cycle 1 on 09/06/24
[2024-09-12] MEDS: SYMBICORT 80-4.5 MCG INHALER INHALATION SCH (20:17)
[2024-09-12] MEDS: ALPRAZolam 0.25 MG TAB PO PRN (20:32)
[2024-09-12] MEDS: MELATONIN 5 MG TABLET PO SCH (20:32)
[2024-09-12] MEDS: TRIAMCINOLONE 0.1% CREAM 80 GM TUBE TOPICAL SCH (20:33)
[2024-09-12 22:45] LABS: % Iron Saturation 85.94 (15.00-50.00)
[2024-09-12] MEDS: FLUTICASONE NASAL 50MCG/SPRAY 16GM BTL EA NOSTRIL SCH (23:22)
--- NOTE | 2024-09-13 01:29 | HP ---
HISTORY AND PHYSICAL CHIEF COMPLAINT: Anemia. HISTORY OF PRESENT ILLNESS: This 79-year-old gentleman with a past medical history of multiple medical problems including recently diagnosed stage III esophageal cancer, was found to have anemia. The patient has some black stools and the patient was sent to [facility] by Dr. Faith. The evaluation showed hemoglobin 5.7 and the patient received 2 units of transfusion and hemoglobin is 8.5. There is no history of any fever, rigors, or chills at this time. The patient is awaiting proton beam treatment from elsewhere. PAST MEDICAL HISTORY: History of recently diagnosed of esophageal cancer. Rest of the history and rest of the chart are also reviewed. HOME MEDICATIONS: Reviewed include fluticasone spray. Rest of medications reviewed. ALLERGIES: Aspirin. FAMILY HISTORY: History of leukemia. SOCIAL HISTORY: History of smoking. REVIEW OF SYSTEMS: Fourteen-point review of systems is negative except as mentioned earlier. PHYSICAL EXAMINATION: VITAL SIGNS: Pulse is 92, blood pressure 111/52, and respirations 18. HEENT: Conjunctivae pale. NECK: No JVD. CARDIOVASCULAR: S1, S2. ABDOMEN: Soft and nontender. LEGS: No edema. NERVOUS SYSTEM: Nonfocal. LABORATORY DATA: WBC 3.2 and hemoglobin 8.4. Rest of labs are noted. ASSESSMENT: 1. Acute blood loss anemia secondary from gastrointestinal bleed. 2. Recently diagnosed esophageal cancer, stage IV. 3. Hypertension. 4. Gastroesophageal reflux disease. 5. History of nicotine dependence. 6. Anxiety. RECOMMENDATIONS AND DISCUSSION: This 79-year-old gentleman, presented with multiple complex medical issues. The patient already received 2 units of transfusion. I would recommend Hematology/Oncology as well as Gastroenterology consultations. Abdominal pelvis CTA was done, which showed no definite evidence of gastrointestinal hemorrhage, but other findings suggestive of esophageal carcinoma. Overall prognosis extremely guarded, which I discussed at length with the daughter at the bedside and further recommendations to follow. Repeat labs will be ordered. MMODL / IJN: [id number] /
[2024-09-13 06:55] LABS: Basophils % (A) 1 %; Eosinophils # (A) 0.1 k/uL (0-0.7); Eosinophils % (A) 3 %; Lymphocytes # (A) 1.6 k/uL (1.0-4.8); Lymphocytes % (A) 54 %; MCH 29.5 pg (25.0-35.0); MCHC 33.3 g/dL (31.0-37.0); MCV 88.7 fL (80.0-100.0); Monocytes # (A) 0.1 k/uL (0-1.0); Monocytes % (A) 2 %; Neutrophils # (A) 1.1 k/uL (1.3-7.7); Neutrophils % (A) 39 %; Platelet Count 169 k/uL (150-450); RBC 2.71 m/uL (4.30-5.90); RDW 15.6 % (11.5-15.5); WBC 2.9 k/uL (3.8-10.6)
[2024-09-13 07:18] LABS: ALT 23 U/L (4-49); AST 22 U/L (17-59); African American GFR (CKD) >90 (>60 ml/min/1.73 sqM); Albumin 2.1 g/dL (3.5-5.0); Alkaline Phosphatase 105 U/L (38-126); Anion Gap 3 mmol/L; Blood Urea Nitrogen 19 mg/dL (9-20); Calcium 7.6 mg/dL (8.4-10.2); Carbon Dioxide 29 mmol/L (22-30); Chloride 96 mmol/L (98-107); Glucose 85 mg/dL (74-99); Non-African American GFR(CKD) >90 (>60 ml/min/1.73 sqM); Potassium 4.5 mmol/L (3.5-5.1); Sodium 128 mmol/L (137-145); Total Bilirubin 0.6 mg/dL (0.2-1.3); Total Protein 4.4 g/dL (6.3-8.2)
[2024-09-13] MEDS ORDERED: FLUTICASONE NASAL 50MCG/SPRAY 16GM BTL EA NOSTRIL SCH ×2 (09:00)
[2024-09-13] MEDS ORDERED: LOSARTAN 50 MG TAB PO SCH (09:00)
--- NOTE | 2024-09-13 09:22 | P.CONS ---
History of Present Illness - Reason for Consult Consult date: 09/13/24 wound care - History of Present Illness This is a 79-year-old patient with a history of stage III esophageal cancer presenting with a stage II pressure ulcer to the right buttocks. Family states that the ulceration has been there for few weeks they have been utilizing monkey butt to the site which has improving until he was hospitalized. Patient has a stage II pressure ulcer to the right buttocks measuring approximately 0.4 x 0.3 x 0.2 cm with granulation and minimal slough noted to the wound bed. The periwound does show excoriation. Patient states that due to his reflux he is unable to lay down. He does spend the majority of his time sitting up in a chair including sleeping. Discussed the importance of utilizing air-filled cushion while sitting patient and family verbalized understanding. Review Of Systems: Constitutional: No fever, no chills, no night sweats. No weight change. No weakness, fatigue or lethargy. No daytime sleepiness. Integumentary:reports wounds, no lesions. No rash or pruritus. No unusual bruising. No change in hair or nails. Physical exam: General Appearance: Alert, cooperative, no distress, appears stated age. Skin: See HPI all other Skin color, texture, tugor normal, no rashes or lesions. Neurologic: Alert oriented x3 Assessment: 1. Stage II pressure ulcer right buttocks 2. Stage I pressure ulcer sacrum Plan: 1. Apply honey gel and bordered foam to the right buttocks ulceration change Monday. Apply zinc barrier cream to the face. Discussed the importance of utilizing air-filled cushion while sitting. If ulceration worsens we will be happy to see the patient in the wound care center. Thank you for the consultation any questions please contact the wound care center DNP note has been reviewed and discussed with Dr. Desir and the impression and plan of care has been directed as dictated. Past Medical History Past Medical History: GERD/Reflux, Hypertension Additional Past Medical History / Comment(s): esophogeal cancer, july 07, 2024 History of Any Multi-Drug Resistant Organisms: None Reported Past Surgical History: No Surgical Hx Reported Past Anesthesia/Blood Transfusion Reactions: No Reported Reaction Smoking Status: Current every day smoker Past Alcohol Use History: None Reported Past Drug Use History: None Reported - Past Family History Mother Family Medical History: Cancer Additional Family Medical History / Comment(s): leukemia Medications and Allergies Home Medications Medication Instructions Recorded Confirmed Type Fluticasone Nasal [place] [Flonase 1 spray EA NOSTRIL BID 07/11/24 09/11/24 History Nasal [place]] Fluticasone Propion/Salmeterol 1 puff INHALATION RT-BID 07/11/24 09/11/24 History [Fluticasone-Salmeterol 250-50] Furosemide [Lasix] 40 mg PO DAILY 07/11/24 09/11/24 History Losartan Potassium 100 mg PO DAILY 07/11/24 09/11/24 History Omeprazole 20 mg PO DAILY 07/11/24 09/11/24 History Ondansetron [Zofran] 8 mg PO Q8HR PRN 07/11/24 09/11/24 History ALPRAZolam [Xanax] 0.25 mg PO BID PRN 09/11/24 09/11/24 History Triamcinolone 0.1% Cream [Kenalog 1 applicatio TOPICAL BID 09/11/24 09/11/24 History 0.1% Cream] Allergies Allergy/AdvReac Type Severity Reaction Status Date / Time aspirin Allergy Unknown Verified 09/11/24 17:39 NSAIDS (Non-Steroidal Allergy Unknown Verified 09/11/24 17:39 Anti-Inflamma Physical Exam Vitals: Vital Signs Temp Pulse Resp BP Pulse Ox 09/13/24 09:04 93 17 107/56 100 09/13/24 04:00 74 18 100 09/13/24 01:00 98.3 F 81 15 105/62 100 09/12/24 19:39 98.3 F 78 18 108/60 96 09/12/24 15:37 75 18 111/72 98 09/12/24 13:32 92 18 111/52 98 09/12/24 12:01 67 16 97/52 95 Intake and Output 09/12/24 09/13/24 09/13/24 22:59 06:59 14:59 Other: # Voids 2 Results CBC & Chem 7: 09/13/24 05:40 09/13/24 05:40 Labs: Abnormal Lab Results - Last 24 Hours (Table) 09/11/24 09/13/24 09/13/24 Range/Units 15:31 05:40 05:40 WBC 2.9 L (3.8-10.6) k/uL RBC 2.71 L (4.30-5.90) m/uL Hgb 8.0 L (13.0-17.5) gm/dL Hct 24.0 L (39.0-53.0) % RDW 15.6 H (11.5-15.5) % Neutrophils # 1.1 L (1.3-7.7) k/uL Sodium 128 L (137-145) mmol/L Chloride 96 L (98-107) mmol/L Calcium 7.6 L (8.4-10.2) mg/dL Iron 220 H (65-175) UG/DL % Saturation 85.94 H (15.00-50.00) Transferrin 183.0 L (204.0-354.0) mg/dL Ferritin 991.0 H (22.0-322.0) ng/mL Total Protein 4.4 L (6.3-8.2) g/dL Albumin 2.1 L (3.5-5.0) g/dL Assessment and Plan (1) Stage II pressure ulcer of right buttock Current Visit: Yes Status: Acute Code(s): L89.312 - PRESSURE ULCER OF RIGHT BUTTOCK, STAGE 2 SNOMED Code(s): 07662856414007 (2) Stage 1 skin ulcer of sacral region Current Visit: Yes Status: Acute Code(s): L98.429 - NON-PRESSURE CHRONIC ULCER OF BACK WITH UNSPECIFIED SEVERITY SNOMED Code(s): 21068613
[2024-09-13] MEDS: LOSARTAN 50 MG TAB PO SCH (09:53)
[2024-09-13] MEDS: SODIUM CHLORIDE 0.9% 1,000 ML IV ONE (10:48)
[2024-09-13] MEDS: SODIUM CHLORIDE 0.9% 500 ML 500 ML IV ONE (10:49)
--- NOTE | 2024-09-13 11:48 | P.PN ---
Subjective Progress Note Date: 09/13/24 Principal diagnosis: Anemia, esophageal cancer This a pleasant 79-year-old male with recent diagnosis of poorly differentiated adenocarcinoma of esophagus. He underwent EGD on 07/16/2024 with findings of tight esophageal stricture with thickened mucosal folds and friable mucosa suspicious for malignancy and scope was not able to be advanced through the esophageal stricture into the stomach. Patient was referred outpatient to oncology. He follows with Dr. Alfaro. He is also following with Dr. Vargas radiation oncologist and now Dr. Garcia as well out of [facility]. States he started his first round of chemo this past Monday. He has been getting iron infusions and since his iron infusions he has been having black stool. He had blood work done yesterday and was told to come to the emergency department for low hemoglobin. Hemoglobin on admission was 5.7 hematocrit 17.5 platelet count 276,000 INR 0.9. Gastroenterology was consulted for anemia with black stools. He received 2 units of blood with a repeat home hemoglobin today of 8.5. Stool occult blood was positive. He denies any significant abdominal pain, no nausea or vomiting. 09/13/2024 Patient seen and examined today as a follow-up. Hemoglobin with a slight drop from 8.5 yesterday to 8.0 today. Oncology following and have ordered parental iron. Patient states he got a dose yesterday. He denies any abdominal pain, nausea or vomiting. He states this morning he had no bowel movement. Nursing had called later and states that patient was hypotensive, he did have a bowel movement but she did not see it and states the patient said it has been in the same as it has been. Objective - Vital Signs Vital signs: Vital Signs Temp 98.3 F 09/13/24 01:00 Pulse 74 09/13/24 04:00 Resp 18 09/13/24 04:00 BP 105/62 09/13/24 01:00 Pulse Ox 100 09/13/24 04:00 FiO2 Intake & Output 09/12/24 09/13/24 09/13/24 18:59 06:59 18:59 Other: # Voids 2 - Exam General appearance: The patient is alert, oriented, appears in no acute distress. HET: Head is normocephalic and atraumatic. Conjunctiva pink. Sclera anicteric. Neck: Supple without lymphadenopathy. Abdomen: Soft, nontender, nondistended. Extremities: Normal skin color and turgor. No pedal edema Skin: No rashes, no jaundice Neurological: No focal deficits. Alert and oriented. - Labs CBC & Chem 7: 09/13/24 05:40 09/13/24 05:40 Labs: Abnormal Lab Results - Last 24 Hours (Table) 09/11/24 09/12/24 09/12/24 Range/Units 15:31 06:21 06:21 WBC 3.2 L (3.8-10.6) k/uL RBC 2.83 L (4.30-5.90) m/uL Hgb 8.5 L D (13.0-17.5) gm/dL Hct 24.8 L (39.0-53.0) % RDW 15.9 H (11.5-15.5) % Neutrophils # (1.3-7.7) k/uL Sodium 128 L (137-145) mmol/L BUN 27 H (9-20) mg/dL Calcium 7.9 L (8.4-10.2) mg/dL Iron 220 H (65-175) UG/DL % Saturation 85.94 H (15.00-50.00) Transferrin 183.0 L (204.0-354.0) mg/dL Ferritin 991.0 H (22.0-322.0) ng/mL 09/13/24 Range/Units 05:40 WBC 2.9 L (3.8-10.6) k/uL RBC 2.71 L (4.30-5.90) m/uL Hgb 8.0 L (13.0-17.5) gm/dL Hct 24.0 L (39.0-53.0) % RDW 15.6 H (11.5-15.5) % Neutrophils # 1.1 L (1.3-7.7) k/uL Sodium (137-145) mmol/L BUN (9-20) mg/dL Calcium (8.4-10.2) mg/dL Iron (65-175) UG/DL % Saturation (15.00-50.00) Transferrin (204.0-354.0) mg/dL Ferritin (22.0-322.0) ng/mL Assessment and Plan (1) Anemia Narrative/Plan: 79-year-old male recently diagnosed with esophageal cancer undergoing chemotherapy with his first treatment this past Monday had follow-up blood work noted to have a low hemoglobin and was sent in for blood transfusion. He has been reportedly having black stools since he had his second iron infusion. Likely he is having some bleeding and/or oozing from esophageal mass however would not recommend endoscopic evaluation at this time and would treat with medical management and transfuse as needed. Current Visit: Yes Status: Acute Priority: High Code(s): D64.9 - ANEMIA, UNSPECIFIED SNOMED Code(s): 083253920 (2) Esophageal cancer Narrative/Plan: Anemia likely multifactorial secondary to esophageal cancer and chemotherapy as well as possible GI bleed secondary to esophageal mass oozing. Last EGD mass was very friable, could not pass scope beyond mass. Current Visit: Yes Status: Acute Priority: High Code(s): C15.9 - MALIGNANT NEOPLASM OF ESOPHAGUS, UNSPECIFIED SNOMED Code(s): 398179739 Plan: 1. Continue symptomatic and supportive care 2. Daily CBC, transfuse for hemoglobin less than 7 3. Protonix 40 mg daily 4. Recommend full liquid diet 5. No plans on endoscopic evaluation, treat anemia with medical management, transfuse as needed 6. Case discussed with oncology, continue with recommendations from oncology Thank you for allowing us to participate in the care of the patient, the GI service will sign off, gastroenterology will not be available at the hospital this weekend and through next week. If further evaluation by gastroenterology is required the patient will need transfer as per the primary team's discretion. Dr. Gerard Aquino I agree with the dictator's note, documented as a scribe by Mary Marsh.
[2024-09-13] MEDS: DESMOPRESSIN ACETATE 24 MCG in SODIUM CHLORIDE 0.9% 50 ML IVPB ONE (12:08)
--- NOTE | 2024-09-13 14:03 | XR ---
EXAMINATION TYPE: XR chest 1V portable DATE OF EXAM: 09/13/2024 1:59 PM COMPARISON: None. CLINICAL INDICATION: Male, 79 years old with history of chf, TECHNIQUE: XR chest 1V portable views of the chest are obtained. FINDINGS: Demonstrated are scattered senescent parenchymal change. There is no evidence for focal infiltrate. The heart is stable. Hilar and mediastinal structures are within normal limits. Degenerative changes are seen of the dorsal spine. IMPRESSION: 1. Chronic changes without evidence for acute pulmonary disease. [facility], , 09/13/2024 2:01 PM
--- NOTE | 2024-09-13 16:05 | P.CNPUL ---
History of Present Illness Consult date: 09/13/24 Requesting physician: Doe Patiño Reason for consult: other (Critical care management) Chief complaint: Anemia, confusion History of present illness: Is a pleasant 79-year-old male patient with a known history of hypertension, chronic tobacco dependence, esophageal cancer diagnosed in July 2024. He had been having difficulty swallowing and had undergone an EGD on 07/16/2024 and was found to have a tight distal esophageal stricture with thickened mucosal for some friable mucosal. Biopsy revealed poorly differentiated adenocarcinoma. PET scan revealed uptake in the primary site and small periesophageal lymph nodes. There was mild uptake in the left retroperitoneal node that was no nspecific. He has since been seen by medical and radiation oncology. He received 1 round of chemotherapy 1 week ago on September 06, 2024. The plan was for proton beam radiation treatments as well which she had not started yet. Pain in the oncology clinic on September 11 and was noted to have a hemoglobin of 6.0. The patient had also been complaining of some confusion. He was referred to the emergency room. Initial hemoglobin here was 5.7. He is status post 3 units of packed red blood cells. Current hemoglobin 8.0. 128. Potassium 4.5. Bicarb 29. BUN 19. Creatinine 0.69. Chest x-ray reveals no acute pulmonary process. CT scan of the abdomen pelvis revealed no evidence of GI hemorrhage. Circumferential wall thickening of the distal esophagus with hyperemia of the mucosa. Enlarged paraesophageal lymph node is present. He was having some dark tarry stools this morning in the ER. A rapid response team was called and he was transferred to a trauma to room. Stool for occult blood is positive. He did have some episodes of hypotension and we are consulted for ICU placement. He is seen in the emergency department. Currently sitting up on a stretcher. Awake and alert in no acute distress. He is maintaining good O2 saturations in the upper 90s on room air. He is afebrile. Most recent blood pressure 91/44 with a mean arterial pressure of 59. CIWA 1 L of fluid resuscitation today. Received DDAVP. Receiving iron supplements. Review of Systems REVIEW OF SYSTEMS: CONSTITUTIONAL: Positive for generalized weakness. Denies any recent sign ificant weight loss or weight gain. EYES: Denies change in vision. EARS, NOSE, MOUTH, THROAT: Denies headaches, denies sore throat. CARDIOVASCULAR: Denies chest pain, palpitations or syncopal episodes. RESPIRATORY: Denies shortness of breath, cough, congestion or hemoptysis. GASTROINTESTINAL: Denies change in appetite, denies abdominal pain GENITOURINARY: Denies hematuria, denies infections. MUSKULOSKELETAL: Denies pain, denies swelling. INTEGUMENTARY: Denies rash, denies eczema. NEUROLOGICAL: Denies recent memory loss, no recent seizure activity. PSYCHIATRIC: Denies anxiety, denies depression. HEMATOLOGIC/LYMPHATIC: Denies anemia, denies enlarged lymph nodes. Past Medical History Past Medical History: GERD/Reflux, Hypertension Additional Past Medical History / Comment(s): esophogeal cancer, july 07, 2024 History of Any Multi-Drug Resistant Organisms: None Reported Past Surgical History: No Surgical Hx Reported Past Anesthesia/Blood Transfusion Reactions: No Reported Reaction Smoking Status: Current every day smoker Past Alcohol Use History: None Reported Past Drug Use History: None Reported - Past Family History Mother Family Medical History: Cancer Additional Family Medical History / Comment(s): leukemia Medications and Allergies Home Medications Medication Instructions Recorded Confirmed Type Fluticasone Nasal [place] [Flonase 1 spray EA NOSTRIL BID 07/11/24 09/11/24 History Nasal [place]] Fluticasone Propion/Salmeterol 1 puff INHALATION RT-BID 07/11/24 09/11/24 History [Fluticasone-Salmeterol 250-50] Furosemide [Lasix] 40 mg PO DAILY 07/11/24 09/11/24 History Losartan Potassium 100 mg PO DAILY 07/11/24 09/11/24 History Omeprazole 20 mg PO DAILY 07/11/24 09/11/24 History Ondansetron [Zofran] 8 mg PO Q8HR PRN 07/11/24 09/11/24 History ALPRAZolam [Xanax] 0.25 mg PO BID PRN 09/11/24 09/11/24 History Triamcinolone 0.1% Cream [Kenalog 1 applicatio TOPICAL BID 09/11/24 09/11/24 History 0.1% Cream] Allergies Allergy/AdvReac Type Severity Reaction Status Date / Time aspirin Allergy Unknown Verified 09/11/24 17:39 NSAIDS (Non-Steroidal Allergy Unknown Verified 09/11/24 17:39 Anti-Inflamma Physical Exam Vitals: Vital Signs Temp Pulse Resp BP Pulse Ox 09/13/24 14:22 97.8 F 87 16 91/44 97 09/13/24 14:12 93 18 91/44 99 09/13/24 12:09 98.1 F 74 16 105/47 97 09/13/24 11:49 97.6 F 70 15 96/47 96 09/13/24 11:36 98 F 64 16 93/45 09/13/24 11:17 67 16 83/47 100 09/13/24 10:49 77 20 74/56 100 09/13/24 09:50 98 18 90/45 97 09/13/24 09:04 93 17 107/56 100 09/13/24 04:00 74 18 100 09/13/24 01:00 98.3 F 81 15 105/62 100 09/12/24 19:39 98.3 F 78 18 108/60 96 Intake and Output 09/13/24 09/13/24 09/13/24 06:59 14:59 22:59 Intake Total 310 Balance 310 Intake: Blood Product 310 Rc As-1 Unit 310 [id number] GENERAL EXAM: Alert, pleasant 79-year-old male, on room air, fairly comfortable in no apparent distress. HEAD: Normocephalic. EYES: Normal reaction of pupils, equal size. NOSE: Clear with pink turbinates. THROAT: No erythema or exudates. NECK: No masses, no JVD. CHEST: No chest wall deformity. LUNGS: Equal air entry with no crackles, wheeze, rhonchi or dullness. CVS: S1 and S2 normal with no audible murmur, regular rhythm. ABDOMEN: No hepatosplenomegaly, normal bowel sounds, no guarding or rigidity. SPINE: No scoliosis or deformity SKIN: Stage II pressure ulcer on right buttocks. Stage I pressure ulcer sacrum CENTRAL NERVOUS SYSTEM: No focal deficits, tone is normal in all 4 extremities. EXTREMITIES: There is no peripheral edema. No clubbing, no cyanosis. Peripheral pulses are intact. Results - Laboratory Findings CBC and BMP: 09/13/24 05:40 09/13/24 05:40 PT/INR, D-dimer PT 9.8 sec (10.0-12.5) L 09/11/24 17:12 INR 0.9 (<1.2) 09/11/24 17:12 Abnormal lab findings: Abnormal Labs 09/11/24 09/11/24 09/11/24 15:00 15:31 15:31 WBC RBC 2.03 L Hgb 5.7 L* Hct 17.5 L* RDW 16.8 H Neutrophils # PT Sodium 127 L Potassium 5.9 H Chloride BUN 37 H Calcium 8.0 L Iron % Saturation Transferrin Ferritin Total Protein 5.2 L Albumin 2.6 L Crossmatch See Detail 09/11/24 09/11/24 09/12/24 15:31 17:12 06:21 WBC 3.2 L RBC 2.83 L Hgb 8.5 L D Hct 24.8 L RDW 15.9 H Neutrophils # PT 9.8 L Sodium Potassium Chloride BUN Calcium Iron 220 H % Saturation 85.94 H Transferrin 183.0 L Ferritin 991.0 H Total Protein Albumin Crossmatch 09/12/24 09/13/24 09/13/24 06:21 05:40 05:40 WBC 2.9 L RBC 2.71 L Hgb 8.0 L Hct 24.0 L RDW 15.6 H Neutrophils # 1.1 L PT Sodium 128 L 128 L Potassium Chloride 96 L BUN 27 H Calcium 7.9 L 7.6 L Iron % Saturation Transferrin Ferritin Total Protein 4.4 L Albumin 2.1 L Crossmatch - Diagnostic Findings Chest x-ray: image reviewed CT scan - chest: image reviewed Assessment and Plan Assessment: Acute anemia requiring 3 units of packed red blood cells thus far. Current hemoglobin 8.0 Hypotension secondary to above Recent diagnosis of esophageal cancer receiving 1 round of chemotherapy on September 06, 2024, plans for proton beam radiation therapy Oozing from esophageal tumor and lymph node Hyponatremia Stage II pressure ulcer on the right buttock, with stage I pressure ulcer on the sacrum Chronic tobacco dependence Hypertension Gastroesophageal reflux disease Plan: The patient was seen and evaluated Imaging, labs and medications reviewed Status post 3 unit of packed red blood cells Received some fluid resuscitation Remains somewhat hypotensive No pressors required so far Will transfer to the intensive care unit for closer monitoring Gastroenterology, oncology consulted We will continue to follow and make further recommendations based on his clinical status I have personally seen and examined the patient, performed the documentation and the assessment and plan as written. Number of minutes spent on the visit: 20 Dictation was produced using [employer] software. Please excuse any grammatical, word or spelling errors.
--- NOTE | 2024-09-13 16:09 | P.PN ---
Subjective Progress Note Date: 09/13/24 Patient reports after having a melanotic BM this morning, approximate 10 minutes later he was noted to be hypotensive. Patient states he was asymptomatic, denies dizziness and shortness of breath. 1 L fluid bolus was given the patient, with improvement in blood pressure. Additional unit PRBCs and 1 dose DDAVP ordered. Today hemoglobin 8.0, yesterday 8.5. 2 doses Ferrlecit completed. Objective - Vital Signs Vital signs: Vital Signs Temp 98.3 F 09/13/24 01:00 Pulse 67 09/13/24 11:17 Resp 16 09/13/24 11:17 BP 83/47 09/13/24 11:17 Pulse Ox 100 09/13/24 11:17 FiO2 Intake & Output 09/12/24 09/13/24 09/13/24 18:59 06:59 18:59 Other: # Voids 2 - Constitutional General appearance: Present: average body habitus, no acute distress - EENT Eyes: Present: anicteric sclerae, EOMI ENT: Present: hearing grossly normal - Respiratory Details: breathing is even and unlabored - Cardiovascular Details: skin warm and dry, NSR - Gastrointestinal General gastrointestinal: Present: soft. Absent: tenderness - Integumentary Integumentary: Absent: cyanotic, jaundiced - Neurologic Neurologic: Present: CNII-XII intact - Musculoskeletal Musculoskeletal: Present: strength equal bilaterally - Psychiatric Psychiatric: Present: A&O x's 3 - Labs CBC & Chem 7: 09/13/24 05:40 09/13/24 05:40 Labs: Abnormal Lab Results - Last 24 Hours (Table) 09/11/24 09/11/24 09/13/24 Range/Units 15:00 15:31 05:40 WBC 2.9 L (3.8-10.6) k/uL RBC 2.71 L (4.30-5.90) m/uL Hgb 8.0 L (13.0-17.5) gm/dL Hct 24.0 L (39.0-53.0) % RDW 15.6 H (11.5-15.5) % Neutrophils # 1.1 L (1.3-7.7) k/uL Sodium (137-145) mmol/L Chloride (98-107) mmol/L Calcium (8.4-10.2) mg/dL Iron 220 H (65-175) UG/DL % Saturation 85.94 H (15.00-50.00) Transferrin 183.0 L (204.0-354.0) mg/dL Ferritin 991.0 H (22.0-322.0) ng/mL Total Protein (6.3-8.2) g/dL Albumin (3.5-5.0) g/dL Crossmatch See Detail 09/13/24 Range/Units 05:40 WBC (3.8-10.6) k/uL RBC (4.30-5.90) m/uL Hgb (13.0-17.5) gm/dL Hct (39.0-53.0) % RDW (11.5-15.5) % Neutrophils # (1.3-7.7) k/uL Sodium 128 L (137-145) mmol/L Chloride 96 L (98-107) mmol/L Calcium 7.6 L (8.4-10.2) mg/dL Iron (65-175) UG/DL % Saturation (15.00-50.00) Transferrin (204.0-354.0) mg/dL Ferritin (22.0-322.0) ng/mL Total Protein 4.4 L (6.3-8.2) g/dL Albumin 2.1 L (3.5-5.0) g/dL Crossmatch Assessment and Plan (1) Anemia Current Visit: Yes Status: Acute Priority: High Code(s): D64.9 - ANEMIA, UNSPECIFIED SNOMED Code(s): 197432436 (2) Black stools Current Visit: Yes Status: Acute Priority: High Code(s): K92.1 - MELENA SNOMED Code(s): 175473554 (3) Esophageal cancer Current Visit: Yes Status: Acute Priority: High Code(s): C15.9 - MALIGNANT NEOPLASM OF ESOPHAGUS, UNSPECIFIED SNOMED Code(s): 415314719 (4) Low hemoglobin Current Visit: Yes Status: Acute Priority: High Code(s): D64.9 - ANEMIA, UNSPECIFIED SNOMED Code(s): 092235927 Plan: Normocytic anemia, melena: Patient was evaluated in clinic on 09/11 was noted to have a hemoglobin of 6.0, patient was- also complaining of confusion at which time he was presented to the emergency room for further evaluation. Patient does report having melanotic stools after receiving IV iron. Recieved 2 doses feraheme, last dose on 08/19/24. Melena likely r/t to known esophageal malignancy -Upon admit hemoglobin is noted at 5.7, 2 units PRBCs were given. Repeat hemoglobin 8.5. WBC 3.2, platelets 175,000. -CTA abdomen pelvis showing no evidence for gastrointestinal hemorrhage. Hyperemia of the gastric mucosa with wall thickening. Surgical ventral wall thickening of the distal esophagus with hyperemia of the mucosa. Mild thickening of the sigmoid colon with multiple diverticula present. Distended bladder with bladder diverticula. Colonic diverticulosis, and cholelithiasis. -Parenteral iron x 2 doses given -After a melanotic BM this morning, approximate 10 minutes later pt was noted to be hypotensive. Patient states he was asymptomatic, denies dizziness and shortness of breath. 1 L fluid bolus was given the patient, with improvement in blood pressure. Additional unit PRBCs and 1 dose DDAVP ordered. -Today, hemoglobin 8.0 -Continue to closely monitor CBC, transfuse for hgb < 7 or if symptomatic Case discussed with GI, no plan for endoscopic evaluation at this time Esophageal carcinoma: -Oncology history as dictated in the HPI -Plan was to initiate concurrent proton beam therapy, currently awaiting to start, in the meantime he was started on systemic treatment with Carbo/taxol/hercpetin, completing cycle 1 on 09/06/24
[2024-09-13 16:52] LABS: Basophils % (A) 0 %; Eosinophils % (A) 2 %; HCT 26.7 % (39.0-53.0); Lymphocytes # (A) 1.1 k/uL (1.0-4.8); Lymphocytes % (A) 53 %; MCH 29.9 pg (25.0-35.0); MCHC 33.6 g/dL (31.0-37.0); MCV 88.9 fL (80.0-100.0); Mean Platelet Volume 9.3; Monocytes % (A) 1 %; Neutrophils # (A) 0.9 k/uL (1.3-7.7); Neutrophils % (A) 41 %; Platelet Count 154 k/uL (150-450); RDW 15.2 % (11.5-15.5); WBC 2.1 k/uL (3.8-10.6)
[2024-09-13 21:08] LABS: Glucose,Whole Blood 96 mg/dL (70-110)
--- NOTE | 2024-09-13 22:43 | PN ---
PROGRESS NOTE DATE OF SERVICE: 09/13/2024 SUBJECTIVE: This is a 79-year-old gentleman who was admitted with severe anemia, had transfusion. Hemoglobin improved to 8.5, but subsequently fell to 8 and the patient on hypotension. The patient is again being transfused at this time. GI Surgery is on the case. The patient is also being followed by Dr. Faith also. PAST MEDICAL HISTORY: Reviewed. REVIEW OF SYSTEMS: Fourteen-point review of systems is negative except as mentioned earlier. CURRENT MEDICATIONS: Reviewed. PHYSICAL EXAMINATION: VITAL SIGNS: Pulse is 74, blood pressure 105/47, respirations 16. CHEST: A few scattered rhonchi and crackles. HEENT: Conjunctivae pale. ABDOMEN: Soft, nontender. No masses palpable. LEGS: No edema. NERVOUS SYSTEM: Nonfocal. LABORATORY DATA: WBC 2, hemoglobin 8. Rest of the labs are noted. ASSESSMENT: 1. Acute severe blood loss anemia secondary from gastrointestinal bleed possibly with hypotension. 2. Recently diagnosed esophageal cancer, stage IV. 3. Hypertension history. 4. History of gastroesophageal reflux disease. 5. History of nicotine dependence. 6. History of anxiety. RECOMMENDATIONS AND DISCUSSION: This is a 79-year-old gentleman, who presented with multiple complex medical issues, we will monitor the patient closely. I would recommend H and H q.6h and transfuse periodically. Surgical consultation for a gastroenterology evaluation for endoscopes and consult Dr. Hercules for possible ICU transfer. Prognosis guarded because of multiple complex medical issues. Further recommendations to follow. Discussed at length with the family. MMRENE / MARINAN: [id number] /
[2024-09-14 00:16] LABS: HGB 8.8 gm/dL (13.0-17.5); MCH 29.9 pg (25.0-35.0); MCHC 33.9 g/dL (31.0-37.0); MCV 88.1 fL (80.0-100.0); Mean Platelet Volume 9.4; Platelet Count 172 k/uL (150-450); RBC 2.95 m/uL (4.30-5.90); RDW 15.5 % (11.5-15.5)
[2024-09-14 05:30] LABS: ALT 19 U/L (4-49); AST 16 U/L (17-59); African American GFR (CKD) >90 (>60 ml/min/1.73 sqM); Alkaline Phosphatase 94 U/L (38-126); Anion Gap 3 mmol/L; Blood Urea Nitrogen 16 mg/dL (9-20); Calcium 7.5 mg/dL (8.4-10.2); Carbon Dioxide 26 mmol/L (22-30); Chloride 98 mmol/L (98-107); Glucose 82 mg/dL (74-99); Non-African American GFR(CKD) >90 (>60 ml/min/1.73 sqM); Potassium 4.2 mmol/L (3.5-5.1); Sodium 127 mmol/L (137-145); Total Bilirubin 0.8 mg/dL (0.2-1.3); Total Protein 4.1 g/dL (6.3-8.2)
[2024-09-14 05:42] LABS: Basophils % (A) 0 %; Eosinophils # (A) 0.1 k/uL (0-0.7); Eosinophils % (A) 4 %; HGB 8.4 gm/dL (13.0-17.5); Lymphocytes # (A) 1.5 k/uL (1.0-4.8); Lymphocytes % (A) 70 %; MCH 29.1 pg (25.0-35.0); MCHC 33.4 g/dL (31.0-37.0); Mean Platelet Volume 9.9; Monocytes % (A) 2 %; Neutrophils # (A) 0.5 k/uL (1.3-7.7); Neutrophils % (A) 23 %; Platelet Count 160 k/uL (150-450); RBC 2.88 m/uL (4.30-5.90); RDW 15.6 % (11.5-15.5); WBC 2.2 k/uL (3.8-10.6)
[2024-09-14 06:46] LABS: Tear Drop Cells Present
--- NOTE | 2024-09-14 11:57 | P.GSCN ---
History of Present Illness Consult date: 09/14/24 Reason for Consult: GI bleed History of present illness: 79-year-old male with recent diagnosis of esophageal cancer. Recently started neoadjuvant chemotherapy 1 to 2 weeks ago. Developed black stools recently and was found to be anemic. Had some near syncopal episodes. GI was following but they have signed off for the weekend and therefore we were consulted for GI backup. Patient now having brown stools as of yesterday evening. Hemoglobin 8.4 today. He is very anxious to go home today. Review of Systems The patient denies any acute changes in vision or hearing, no dysphagia or odynophagia, no chest pain or shortness of breath, no dysuria or hematuria, no headache, no runny nose, no rectal bleeding, no unexplained weight loss Past Medical History Past Medical History: Cancer, GERD/Reflux, Hypertension Additional Past Medical History / Comment(s): Esophogeal cancer diagnosed July 07, 2024 x 1 round of IV chemotherapy 09/06/24 History of Any Multi-Drug Resistant Organisms: None Reported Past Surgical History: No Surgical Hx Reported Additional Past Surgical History / Comment(s): EGD and Colonoscopy Past Anesthesia/Blood Transfusion Reactions: No Reported Reaction Past Psychological History: No Psychological Hx Reported Smoking Status: Current every day smoker Past Alcohol Use History: None Reported Additional Past Alcohol Use History / Comment(s): 1 pk/week/all adult life Past Drug Use History: None Reported - Past Family History Mother History Unknown: Yes Family Medical History: Cancer Additional Family Medical History / Comment(s): Leukemia Medications and Allergies Home Medications Medication Instructions Recorded Confirmed Type Fluticasone Nasal [place] [Flonase 1 spray EA NOSTRIL BID 07/11/24 09/11/24 History Nasal [place]] Fluticasone Propion/Salmeterol 1 puff INHALATION RT-BID 07/11/24 09/11/24 History [Fluticasone-Salmeterol 250-50] Furosemide [Lasix] 40 mg PO DAILY 07/11/24 09/11/24 History Losartan Potassium 100 mg PO DAILY 07/11/24 09/11/24 History Omeprazole 20 mg PO DAILY 07/11/24 09/11/24 History Ondansetron [Zofran] 8 mg PO Q8HR PRN 07/11/24 09/11/24 History ALPRAZolam [Xanax] 0.25 mg PO BID PRN 09/11/24 09/11/24 History Triamcinolone 0.1% Cream [Kenalog 1 applicatio TOPICAL BID 09/11/24 09/11/24 History 0.1% Cream] Allergies Allergy/AdvReac Type Severity Reaction Status Date / Time aspirin Allergy Unknown Verified 09/11/24 17:39 NSAIDS (Non-Steroidal Allergy Unknown Verified 09/11/24 17:39 Anti-Inflamma Surgical - Exam Vital Signs Temp Pulse Resp BP Pulse Ox 97.1 F L 83 16 95/52 97 09/11/24 14:41 09/11/24 14:41 09/11/24 14:41 09/11/24 14:41 09/11/24 14:41 Physical exam: General: Well-developed, well-nourished HEENT: Normocephalic, sclerae nonicteric Abdomen: Nontender, nondistended Extremities: No edema Neuro: Alert and oriented Results - Labs 09/14/24 04:04 09/14/24 04:04 Abnormal Lab Results - Last 24 Hours (Table) 09/11/24 09/13/24 09/13/24 Range/Units 15:00 16:27 23:17 WBC 2.1 L 2.0 L (3.8-10.6) k/uL RBC 3.00 L 2.95 L (4.30-5.90) m/uL Hgb 9.0 L 8.8 L (13.0-17.5) gm/dL Hct 26.7 L 26.0 L (39.0-53.0) % RDW (11.5-15.5) % Neutrophils # 0.9 L (1.3-7.7) k/uL Sodium (137-145) mmol/L Calcium (8.4-10.2) mg/dL AST (17-59) U/L Total Protein (6.3-8.2) g/dL Albumin (3.5-5.0) g/dL Crossmatch See Detail 09/14/24 09/14/24 Range/Units 04:04 04:04 WBC 2.2 L (3.8-10.6) k/uL RBC 2.88 L (4.30-5.90) m/uL Hgb 8.4 L (13.0-17.5) gm/dL Hct 25.0 L (39.0-53.0) % RDW 15.6 H (11.5-15.5) % Neutrophils # 0.5 L (1.3-7.7) k/uL Sodium 127 L (137-145) mmol/L Calcium 7.5 L (8.4-10.2) mg/dL AST 16 L (17-59) U/L Total Protein 4.1 L (6.3-8.2) g/dL Albumin 2.0 L (3.5-5.0) g/dL Crossmatch Diabetes panel 09/14/24 Range/Units 04:04 Sodium 127 L (137-145) mmol/L Potassium 4.2 (3.5-5.1) mmol/L Chloride 98 (98-107) mmol/L Carbon Dioxide 26 (22-30) mmol/L BUN 16 (9-20) mg/dL Creatinine 0.68 (0.66-1.25) mg/dL Glucose 82 (74-99) mg/dL Calcium 7.5 L (8.4-10.2) mg/dL AST 16 L (17-59) U/L ALT 19 (4-49) U/L Alkaline Phosphatase 94 (38-126) U/L Total Protein 4.1 L (6.3-8.2) g/dL Albumin 2.0 L (3.5-5.0) g/dL Calcium panel 09/14/24 Range/Units 04:04 Calcium 7.5 L (8.4-10.2) mg/dL Albumin 2.0 L (3.5-5.0) g/dL Pituitary panel 09/14/24 Range/Units 04:04 Sodium 127 L (137-145) mmol/L Potassium 4.2 (3.5-5.1) mmol/L Chloride 98 (98-107) mmol/L Carbon Dioxide 26 (22-30) mmol/L BUN 16 (9-20) mg/dL Creatinine 0.68 (0.66-1.25) mg/dL Glucose 82 (74-99) mg/dL Calcium 7.5 L (8.4-10.2) mg/dL Adrenal panel 09/14/24 Range/Units 04:04 Sodium 127 L (137-145) mmol/L Potassium 4.2 (3.5-5.1) mmol/L Chloride 98 (98-107) mmol/L Carbon Dioxide 26 (22-30) mmol/L BUN 16 (9-20) mg/dL Creatinine 0.68 (0.66-1.25) mg/dL Glucose 82 (74-99) mg/dL Calcium 7.5 L (8.4-10.2) mg/dL Total Bilirubin 0.8 (0.2-1.3) mg/dL AST 16 L (17-59) U/L ALT 19 (4-49) U/L Alkaline Phosphatase 94 (38-126) U/L Total Protein 4.1 L (6.3-8.2) g/dL Albumin 2.0 L (3.5-5.0) g/dL Assessment and Plan (1) Esophageal cancer Narrative/Plan: 79-year-old male with GI bleed likely from known esophageal cancer. No endoscopic plans at this time. Continue neoadjuvant chemoradiation. Stools are now brown in color. May discharge from our point of view. Return if symptoms recur. Current Visit: Yes Status: Acute Priority: High Code(s): C15.9 - MALIGNANT NEOPLASM OF ESOPHAGUS, UNSPECIFIED SNOMED Code(s): 067007454
[2024-09-14 12:05] VITALS: BMI 29.5
--- NOTE | 2024-09-14 12:17 | P.PN ---
Subjective Progress Note Date: 09/14/24 Principal diagnosis: Acute anemia, esophageal cancer Is a pleasant 79-year-old male patient with a known history of hypertension, chronic tobacco dependence, esophageal cancer diagnosed in July 2024. He had been having difficulty swallowing and had undergone an EGD on 07/16/2024 and was found to have a tight distal esophageal stricture with thickened mucosal for some friable mucosal. Biopsy revealed poorly differentiated adenocarcinoma. PET scan revealed uptake in the primary site and small periesophageal lymph nodes. There was mild uptake in the left retroperitoneal node that was nonspecific. He has since been seen by medical and radiation oncology. He received 1 round of chemotherapy 1 week ago on September 06, 2024. The plan was for proton beam radiation treatments as well which she had not started yet. Pain in the oncology clinic on September 11 and was noted to have a hemoglobin of 6.0. The patient had also been complaining of some confusion. He was referred to the emergency room. Initial hemoglobin here was 5.7. He is status post 3 units of packed red blood cells. Current hemoglobin 8.0. 128. Potassium 4.5. Bicarb 29. BUN 19. Creatinine 0.69. Chest x-ray reveals no acute pulmonary process. CT scan of the abdomen pelvis revealed no evidence of GI hemorrhage. Circumferential wall thickening of the distal esophagus with hyperemia of the mucosa. Enlarged paraesophageal lymph node is present. He was having some dark tarry stools this morning in the ER. A rapid response team was called and he was transferred to a trauma to room. Stool for occult blood is positive. He did have some episodes of hypotension and we are consulted for ICU placement. He is seen in the emergency department. Currently sitting up on a stretcher. Awake and alert in no acute distress. He is maintaining good O2 saturations in the upper 90s on room air. He is afebrile. Most recent blood pressure 91/44 with a mean arterial pressure of 59. CIWA 1 L of fluid resuscitation today. Received DDAVP. Receiving iron supplements. Patient was seen today on 09/14/2024, patient was admitted to the ICU last night after I saw him in the ER for hemodynamic monitoring and there was a concern about GI bleeding. Patient did not require any pressors overnight, did not require any blood products overnight, his hemoglobin is 8.4, it was 8.8 last night, and it was 9 yesterday. Patient is on room air, O2 sats is 98% he is hemodynamically stable not in any distress, sodium is a bit low at 127 renal profile is normal bicarb is 42. Patient is doing better than expected considering his overall picture. WBC count is 2.2 today hemoglobin is 8.4 sodium is 127 renal profile is normal patient is to continue on outpatient basis on neoadjuvant chemoradiation therapy today I plan to transfer the patient out of the ICU to a medical surgical floor, and if he continues to do well could be discharged home by tomorrow. Objective - Vital Signs Vital signs: Vital Signs Temp 97.9 F 09/14/24 11:25 Pulse 74 09/14/24 11:25 Resp 16 09/14/24 11:25 BP 114/68 09/14/24 11:25 Pulse Ox 98 09/14/24 11:25 FiO2 Intake & Output 09/13/24 09/14/24 09/14/24 18:59 06:59 18:59 Intake Total 310 Output Total 300 0 Balance 310 -300 0 Weight 85.5 kg 85.5 kg Intake: Blood Product 310 Rc As-1 Unit 310 [id number] Output: Urine 300 0 Other: Voiding Method Bedside Commode Bedside Commode Urinal Urinal # Voids 0 # Bowel Movements 1 2 - Exam GENERAL EXAM: 79-year-old white male pleasant in no distress Head: Atraumatic normocephalic EYES: Normal reaction of pupils, equal size. NOSE: Clear with pink turbinates. THROAT: No erythema or exudates. NECK: No masses, no JVD. CHEST: No chest wall deformity. LUNGS: Equal air entry with no crackles, wheeze, rhonchi or dullness. CVS: S1 and S2 normal with no audible murmur, regular rhythm. ABDOMEN: No hepatosplenomegaly, normal bowel sounds, no guarding or rigidity. SKIN: Stage II pressure ulcer on right buttocks. Stage I pressure ulcer sacrum CENTRAL NERVOUS SYSTEM: Alert oriented x 3 no gross focal deficit EXTREMITIES: No clubbing edema or cyanosis - Labs CBC & Chem 7: 09/14/24 04:04 09/14/24 04:04 Labs: Abnormal Lab Results - Last 24 Hours (Table) 09/11/24 09/13/24 09/13/24 Range/Units 15:00 16:27 23:17 WBC 2.1 L 2.0 L (3.8-10.6) k/uL RBC 3.00 L 2.95 L (4.30-5.90) m/uL Hgb 9.0 L 8.8 L (13.0-17.5) gm/dL Hct 26.7 L 26.0 L (39.0-53.0) % RDW (11.5-15.5) % Neutrophils # 0.9 L (1.3-7.7) k/uL Sodium (137-145) mmol/L Calcium (8.4-10.2) mg/dL AST (17-59) U/L Total Protein (6.3-8.2) g/dL Albumin (3.5-5.0) g/dL Crossmatch See Detail 09/14/24 09/14/24 Range/Units 04:04 04:04 WBC 2.2 L (3.8-10.6) k/uL RBC 2.88 L (4.30-5.90) m/uL Hgb 8.4 L (13.0-17.5) gm/dL Hct 25.0 L (39.0-53.0) % RDW 15.6 H (11.5-15.5) % Neutrophils # 0.5 L (1.3-7.7) k/uL Sodium 127 L (137-145) mmol/L Calcium 7.5 L (8.4-10.2) mg/dL AST 16 L (17-59) U/L Total Protein 4.1 L (6.3-8.2) g/dL Albumin 2.0 L (3.5-5.0) g/dL Crossmatch Assessment and Plan Assessment: Impression: Acute anemia requiring 3 units of packed red blood cells thus far. Hypotension secondary to above, resolved Recent diagnosis of esophageal cancer receiving 1 round of chemotherapy on September 06, 2024, plans for proton beam radiation therapy Oozing from esophageal tumor and lymph node Stage II pressure ulcer on the right buttock, with stage I pressure ulcer on the sacrum Chronic tobacco dependence Hypertension Gastroesophageal reflux disease Recommendation: Transfer the patient out of the ICU to medical surgical floor Continue to monitor labs/CBC/hemoglobin Transfuse for hemoglobin below 7 Consider discharge planning in the next 24 hours depending on his hemoglobin level tomorrow. Will continue to follow Time with Patient: Less than 30 (1111)
[2024-09-14] MEDS ORDERED: TEMAZEPAM 15 MG CAP PO PRN (15:42)
[2024-09-14] MEDS: LOPERAMIDE 2 MG CAP PO PRN (16:37)
--- NOTE | 2024-09-14 16:37 | P.PN ---
Subjective Progress Note Date: 09/14/24 Principal diagnosis: Esophageal cancer -Afebrile, no acute events -Has noted no melena over the past 2 days and did have some loose stool earlier today with C. difficile pending -He is anxious to go home Objective - Vital Signs Vital signs: Vital Signs Temp 98.0 F 09/14/24 13:11 Pulse 68 09/14/24 13:11 Resp 20 09/14/24 13:11 BP 113/68 09/14/24 13:11 Pulse Ox 99 09/14/24 13:11 FiO2 Intake & Output 09/13/24 09/14/24 09/14/24 18:59 06:59 18:59 Intake Total 310 Output Total 300 0 Balance 310 -300 0 Weight 85.5 kg 85.5 kg Intake: Blood Product 310 Rc As-1 Unit 310 [id number] Output: Urine 300 0 Other: Voiding Method Bedside Commode Bedside Commode Urinal Urinal # Voids 0 # Bowel Movements 1 2 - Constitutional General appearance: Present: cooperative, no acute distress - EENT Eyes: Present: EOMI - Respiratory Details: Nonlabored breathing - Cardiovascular Details: Warm and well-perfused - Gastrointestinal General gastrointestinal: Present: distended, normal bowel sounds, soft. Absent: tenderness - Integumentary Integumentary: Present: pale. Absent: rash - Neurologic Neurologic: Present: CNII-XII intact. Absent: focal deficits - Labs CBC & Chem 7: 09/14/24 04:04 09/14/24 04:04 Labs: Abnormal Lab Results - Last 24 Hours (Table) 09/13/24 09/13/24 09/14/24 Range/Units 16:27 23:17 04:04 WBC 2.1 L 2.0 L 2.2 L (3.8-10.6) k/uL RBC 3.00 L 2.95 L 2.88 L (4.30-5.90) m/uL Hgb 9.0 L 8.8 L 8.4 L (13.0-17.5) gm/dL Hct 26.7 L 26.0 L 25.0 L (39.0-53.0) % RDW 15.6 H (11.5-15.5) % Neutrophils # 0.9 L 0.5 L (1.3-7.7) k/uL Sodium (137-145) mmol/L Calcium (8.4-10.2) mg/dL AST (17-59) U/L Total Protein (6.3-8.2) g/dL Albumin (3.5-5.0) g/dL 09/14/24 Range/Units 04:04 WBC (3.8-10.6) k/uL RBC (4.30-5.90) m/uL Hgb (13.0-17.5) gm/dL Hct (39.0-53.0) % RDW (11.5-15.5) % Neutrophils # (1.3-7.7) k/uL Sodium 127 L (137-145) mmol/L Calcium 7.5 L (8.4-10.2) mg/dL AST 16 L (17-59) U/L Total Protein 4.1 L (6.3-8.2) g/dL Albumin 2.0 L (3.5-5.0) g/dL Assessment and Plan (1) Normocytic anemia Current Visit: Yes Status: Acute Code(s): D64.9 - ANEMIA, UNSPECIFIED SNOMED Code(s): 283211725 (2) Esophageal cancer Current Visit: Yes Status: Acute Priority: High Code(s): C15.9 - MALIGNANT NEOPLASM OF ESOPHAGUS, UNSPECIFIED SNOMED Code(s): 742124712 Plan: Normocytic anemia, melena: Patient was evaluated in clinic on 09/11 was noted to have a hemoglobin of 6.0, patient was- also complaining of confusion at which time he was presented to the emergency room for further evaluation. Patient does report having melanotic stools after receiving IV iron. Recieved 2 doses feraheme, last dose on 08/19/24. Melena likely r/t to known esophageal malignancy -Upon admit hemoglobin is noted at 5.7, 2 units PRBCs were given. Repeat hemoglobin 8.5. WBC 3.2, platelets 175,000. -CTA abdomen pelvis showing no evidence for gastrointestinal hemorrhage. Hyperemia of the gastric mucosa with wall thickening. Surgical ventral wall thickening of the distal esophagus with hyperemia of the mucosa. Mild thickening of the sigmoid colon with multiple diverticula present. Distended bladder with bladder diverticula. Colonic diverticulosis, and cholelithiasis. -Parenteral iron x 2 doses given -After a melanotic BM yesterday, approximate 10 minutes later pt was noted to be hypotensive. Patient states he was asymptomatic, denies dizziness and shortness of breath. 1 L fluid bolus was given the patient, with improvement in blood pressure. Additional unit PRBCs and 1 dose DDAVP ordered -Today, hemoglobin 8.4 and has remained stable over the past 48 hours -No surgical or endoscopic interventions planned -Transfuse for hgb < 7 or if symptomatic -If his hemoglobin is stable tomorrow, he would be cleared for discharge from an oncology perspective Esophageal carcinoma: -Oncology history as dictated in the HPI -Plan was to initiate concurrent proton beam therapy, currently awaiting to start, in the meantime he was started on systemic treatment with Carbo/taxol /hercpetin, completing cycle 1 on 09/06/24 yTree Trammell MD
--- NOTE | 2024-09-14 18:22 | PN ---
PROGRESS NOTE DATE OF SERVICE: 09/14/2024 SUBJECTIVE: This 79-year-old gentleman with past medical history of multiple medical problems, admitted with acute on chronic blood loss anemia with some hypotension. The patient was recently diagnosed with esophageal cancer. The patient is closely monitored at this time. The hemoglobin is 8.4 today. Admission hemoglobin was 5.7. The patient received 3 units transfusion so far. PAST MEDICAL HISTORY: Reviewed. REVIEW OF SYSTEMS: Fourteen-point review of systems is negative except as mentioned earlier. CURRENT MEDICATIONS: Reviewed. PHYSICAL EXAMINATION: VITAL SIGNS: Pulse is 68, blood pressuren, respirations 20. HEENT: Conjunctivae pale. NECK: No JVD. CARDIOVASCULAR: S1 and S2. RESPIRATION: Breath sounds diminished at the bases. A few scattered rhonchi. ABDOMEN: Soft. NERVOUS SYSTEM: n. LABORATORY DATA: WBC 2.2. Rest of the labs as noted. ASSESSMENT: 1. Acute severe blood loss anemia secondary from gastrointestinal bleed, possibly with hypotension. 2. Recently diagnosed esophageal cancer, stage IV. 3. Hypertension history. 4. History of gastroesophageal reflux disease. 5. History of nicotine dependence. 6. History of anxiety. RECOMMENDATIONS: Recommend to continue current management and avoid antiplatelet agents. Otherwise, the patient received multiple medications. Recommend to follow the patient closely with GI surgery, Pulmonary and as well as Hematology/Oncology. Repeat labs. Hemoglobin is less than 8. The patient might require some transfusion. Continue to monitor. Further recommendations to follow. See orders for details. MMODL / IJN: [id number] / MTDD
[2024-09-14 19:39] VITALS: RESP 16
[2024-09-15 07:09] VITALS: BP 108/65; PULSE 92; TEMP 99.1
--- NOTE | 2024-09-15 09:02 | P.PN ---
Subjective Progress Note Date: 09/15/24 Principal diagnosis: Esophageal cancer Patient doing well today. Took Imodium yesterday and last bowel movement was around 9 PM. Still brown in color. Morning labs are pending. Patient very anxious to go home today. Objective - Vital Signs Vital signs: Vital Signs Temp 99.1 F 09/15/24 06:37 Pulse 92 09/15/24 06:37 Resp 16 09/15/24 06:37 BP 108/65 09/15/24 06:37 Pulse Ox 98 09/15/24 06:37 FiO2 Intake & Output 09/14/24 09/15/24 09/15/24 18:59 06:59 18:59 Intake Total 480 Output Total 0 150 Balance 480 -150 Weight 85.5 kg 58.5 kg Intake: Oral 480 Output: Urine 0 150 Other: Voiding Method Bedside Commode Bedside Commode Urinal Urinal # Voids 3 3 # Bowel Movements 2 3 - Exam Abdomen: Soft, nontender, nondistended - Labs CBC & Chem 7: 09/14/24 04:04 09/14/24 04:04 Assessment and Plan (1) Esophageal cancer Narrative/Plan: Patient doing well today. Await morning hemoglobin. May discharge from our point of view. Current Visit: Yes Status: Acute Priority: High Code(s): C15.9 - MALIGNANT NEOPLASM OF ESOPHAGUS, UNSPECIFIED SNOMED Code(s): 419668684
[2024-09-15 12:23] LABS: ALT 17 U/L (10-49); AST 13 U/L (14-35); Albumin 2.4 g/dL (3.8-4.9); Albumin/Globulin Ratio 1.26 Ratio (1.60-3.17); Alkaline Phosphatase 98 U/L (41-126); BUN/Creat Ratio 21.33 Ratio (12.00-20.00); Blood Urea Nitrogen 12.8 mg/dL (9.0-27.0); Calcium 7.6 mg/dL (8.7-10.3); Carbon Dioxide 22.9 mmol/L (21.6-31.8); Chloride 98 mmol/L (96-109); Globulin 1.9 g/dL (1.6-3.3); Glucose 86 mg/dL (70-110); Potassium 4.2 mmol/L (3.5-5.5); Sodium 129 mmol/L (135-145); Total Bilirubin 0.5 mg/dL (0.3-1.2); Total Protein 4.3 g/dL (6.2-8.2)
[2024-09-15 12:35] LABS: Basophils # (A) 0.01 X 10*3/uL (0.00-0.10); Basophils % (A) 0.6 %; Eosinophils # (A) 0.04 X 10*3/uL (0.04-0.35); Eosinophils % (A) 2.5 %; HCT 28.2 % (39.6-50.0); HGB 8.8 g/dL (13.0-17.0); Immature Grans, Automated 0 %; Lymphocytes # (A) 1.14 X 10*3/uL (0.90-5.00); Lymphocytes % (A) 71.7 %; MCH 28.8 pg (27.0-32.0); MCHC 31.2 g/dL (32.0-37.0); MCV 92.2 FL (80.0-97.0); Mean Platelet Volume 11.4 FL (9.5-12.2); Monocytes # (A) 0.21 X 10*3/uL (0.20-1.00); Monocytes % (A) 13.2 %; NRBC Per 100 WBC 0 X 10*3/uL (0.00-0.01); Neutrophils # (A) 0.19 X 10*3/uL (1.80-7.70); Platelet Count 164 X 10*3/uL (140-440); RBC 3.06 X 10*6/uL (4.40-5.60); RDW 15.4 % (11.5-14.5); WBC 1.59 X 10*3/uL (4.50-10.00)
--- NOTE | 2024-09-15 12:42 | P.PN ---
Subjective Progress Note Date: 09/15/24 Is a pleasant 79-year-old male patient with a known history of hypertension, chronic tobacco dependence, esophageal cancer diagnosed in July 2024. He had been having difficulty swallowing and had undergone an EGD on 07/16/2024 and was found to have a tight distal esophageal stricture with thickened mucosal for some friable mucosal. Biopsy revealed poorly differentiated adenocarcinoma. PET scan revealed uptake in the primary site and small periesophageal lymph nodes. There was mild uptake in the left retroperitoneal node that was nonspecific. He has since been seen by medical and radiation oncology. He received 1 round of chemotherapy 1 week ago on September 06, 2024. The plan was for proton beam radiation treatments as well which she had not started yet. Pain in the oncology clinic on September 11 and was noted to have a hemoglobin of 6.0. The patient had also been complaining of some confusion. He was referred to the emergency room. Initial hemoglobin here was 5.7. He is status post 3 units of packed red blood cells. Current hemoglobin 8.0. 128. Potassium 4.5. Bicarb 29. BUN 19. Creatinine 0.69. Chest x-ray reveals no acute pulmonary process. CT scan of the abdomen pelvis revealed no evidence of GI hemorrhage. Circumferential wall thickening of the distal esophagus with hyperemia of the mucosa. Enlarged paraesophageal lymph node is present. He was having some dark tarry stools this morning in the ER. A rapid response team was called and he was transferred to a trauma to room. Stool for occult blood is positive. He did have some episodes of hypotension and we are consulted for ICU placement. He is seen in the emergency department. Currently sitting up on a stretcher. Awake and alert in no acute distress. He is maintaining good O2 saturations in the upper 90s on room air. He is afebrile. Most recent blood pressure 91/44 with a mean arterial pressure of 59. CIWA 1 L of fluid resuscitation today. Received DDAVP. Receiving iron supplements. Patient was seen today on 09/14/2024, patient was admitted to the ICU last night after I saw him in the ER for hemodynamic monitoring and there was a concern about GI bleeding. Patient did not require any pressors overnight, did not require any blood products overnight, his hemoglobin is 8.4, it was 8.8 last night, and it was 9 yesterday. Patient is on room air, O2 sats is 98% he is hemodynamically stable not in any distress, sodium is a bit low at 127 renal profile is normal bicarb is 42. Patient is doing better than expected considering his overall picture. WBC count is 2.2 today hemoglobin is 8.4 sodium is 127 renal profile is normal patient is to continue on outpatient basis on neoadjuvant chemoradiation therapy today I plan to transfer the patient out of the ICU to a medical surgical floor, and if he continues to do well could be discharged home by tomorrow. The patient is seen today September 15, 2024 in follow-up on the regular medical floor. He is currently sitting up in bed. Awake and alert in no acute distress. Denies any shortness of breath, cough or congestion. Maintaining good O2 saturations in the 90s on room air. He has been afebrile. Hemodynamically stable. White count 1.59. Hemoglobin 8.8. Platelets 164. Sodium 129. Potassium 4.2. Bicarb 23. BUN 13. Creatinine 0.6. C. difficile screen was negative. Objective - Vital Signs Vital signs: Vital Signs Temp 99.1 F 09/15/24 06:37 Pulse 92 09/15/24 06:37 Resp 16 09/15/24 06:37 BP 108/65 09/15/24 06:37 Pulse Ox 98 09/15/24 06:37 FiO2 Intake & Output 09/14/24 09/15/24 09/15/24 18:59 06:59 18:59 Intake Total 480 Output Total 0 150 Balance 480 -150 Weight 85.5 kg 58.5 kg Intake: Oral 480 Output: Urine 0 150 Other: Voiding Method Bedside Commode Bedside Commode Toilet Urinal Urinal # Voids 3 3 # Bowel Movements 2 3 - Exam GENERAL EXAM: Awake, alert, pleasant 79-year-old male, in no distress. Head: Atraumatic normocephalic. EYES: Normal reaction of pupils, equal size. NOSE: Clear with pink turbinates. THROAT: No erythema or exudates. NECK: No masses, no JVD. CHEST: No chest wall deformity. LUNGS: Equal air entry with no crackles, wheeze, rhonchi or dullness. CVS: S1 and S2 normal with no audible murmur, regular rhythm. ABDOMEN: No hepatosplenomegaly, normal bowel sounds, no guarding or rigidity. SKIN: Stage II pressure ulcer on right buttocks. Stage I pressure ulcer sacrum CENTRAL NERVOUS SYSTEM: Alert oriented x 3 no gross focal deficit EXTREMITIES: No clubbing edema or cyanosis - Labs CBC & Chem 7: 09/14/24 04:04 09/15/24 05:53 Labs: Abnormal Lab Results - Last 24 Hours (Table) 09/15/24 Range/Units 05:53 Sodium 129 L (135-145) mmol/L BUN/Creatinine Ratio 21.33 H (12.00-20.00) Ratio Calcium 7.6 L (8.7-10.3) mg/dL AST 13 L (14-35) U/L Total Protein 4.3 L (6.2-8.2) g/dL Albumin 2.4 L (3.8-4.9) g/dL Albumin/Globulin Ratio 1.26 L (1.60-3.17) Ratio Assessment and Plan Assessment: Acute anemia requiring 3 units of packed red blood cells. Current hemoglobin 8.8 Hypotension secondary to above Recent diagnosis of esophageal cancer receiving 1 round of chemotherapy on September 06, 2024, plans for proton beam radiation therapy Oozing from esophageal tumor and lymph node Hyponatremia Stage II pressure ulcer on the right buttock, with stage I pressure ulcer on the sacrum Chronic tobacco dependence Hypertension Gastroesophageal reflux disease Plan: The patient was seen and evaluated Labs and medications reviewed Hemoglobin remains stable No further black bowel movements Remains stable and on room air Cleared for discharge I have personally seen and examined the patient, performed the documentation and the assessment and plan as written. Number of minutes spent on the visit: 10 Dictation was produced using [email or web address] dictation software. Please excuse any grammatical, word or spelling errors.
--- NOTE | 2024-09-16 07:20 | DS ---
DISCHARGE SUMMARY FINAL DIAGNOSES: 1. Acute severe blood loss anemia secondary to gastrointestinal. 2. bleed, possibly with hypotension from esophageal cancer. 3. Recently diagnosed esophageal cancer, stage IV. 4. Hypertension history. 5. History of gastroesophageal reflux disease. 6. History of nicotine dependence. 7. History of anxiety. HISTORY OF PRESENT ILLNESS: This is a 79-year-old gentleman with a past medical history of GI bleed. The patient was transfused 3 units, hemoglobin stabilized to 8.8. The patient and family are keen on going home, so the patient will be discharged in stable condition and guarded prognosis. On exam, vitals are stable continue the current medications with Protonix 40 mg p.o. b.i.d. Avoid antiplatelet agents and follow up with primary physician, follow up with [facility], and follow up with Surgery Oncology as recommended. Once again, the patient will be discharged in stable condition and guarded prognosis. MMODL / MARINAN: [id number] / JOSE C
--- NOTE | 2024-09-18 17:32 | CDI ---
Documentation Clarification Form Date: 09/18/2024 05:10:39 PM From: Elena Willett RN, CCDS Email: [email or web address] Admit Date: 09/11/2024 06:23:00 PM Patient Name: Jaren Villalobos Visit Number: [id number] Discharge Date: 09/15/2024 01:43:00 PM ATTENTION: The Clinical Documentation Specialists (CDI) and [facility] Coding Staff appreciate your assistance in clarifying documentation. Please respond to the clarification below the line at the bottom and electronically sign. The CDI & [facility] Coding staff will review the response and follow-up if needed. Please note: Queries are made part of the Legal Health Record. If you have any questions, please contact the author of this message via ITS. Doctor Doe Patiño The patient had severe acute on chronic anemia and was transferred to ICU for unstable Hgb and low blood pressure. Based on this information and the findings below, is there an additional diagnosis that is clinically appropriate for this patient? Patient history/risk factors: HTN, smoker and new diagnosis of stage 4 esophageal cancer. He presented with low Hgb. Admitted with acute blood loss anemia from oozing esophageal tumor. Clinical Indicators: 09/11-09/13 Hgb: 5.7-8.5-8.0 09/11 BP: 95/52-107/51 09/13 BP: 74/56-83/47-105/47 09/13 IM: "Acute severe blood loss anemia secondary from gastrointestinal bleed possibly with hypotension." 09/13 CCU: "He did have some episodes of hypotension and we are consulted for ICU placement. Received 3 units of blood, fluid resuscitation. Remains somewhat hypotensive. No pressors required so far." 09/15 CCU: "Oozing from esophageal tumor and lymph node." Treatment: ICU monitoring; 1L 0.9 NS IV bolus x1 on 09/13; 3 units PRBC's Is there an additional diagnosis that is clinically appropriate for this patient? [ ] Hemorrhagic shock [ ] No additional diagnosis/Not clinically significant [ x ] Unable to determine [ ] Other, please specify MTDD
--- NOTE | 2024-10-02 08:50 | CDI ---
Documentation Clarification Form Date: 09/18/2024 05:10:00 PM From: Elean Willett RN, CCDS Email: [email or web address] Admit Date: 09/11/2024 06:23:00 PM Patient Name: Jaren Villalobos Visit Number: [id number] Discharge Date: 09/15/2024 01:43:00 PM ATTENTION: The Clinical Documentation Specialists (CDI) and [facility] Coding Staff appreciate your assistance in clarifying documentation. Please respond to the clarification below the line at the bottom and electronically sign. The CDI & [facility] Coding staff will review the response and follow-up if needed. Please note: Queries are made part of the Legal Health Record. If you have any questions, please contact the author of this message via ITS. Doctor Anuj Hercules The patient had severe acute on chronic anemia and was transferred to ICU for unstable Hgb and low blood pressure. Based on this information and the findings below, is there an additional diagnosis that is clinically appropriate for this patient? Patient history/risk factors: HTN, smoker and new diagnosis of stage 4 esophageal cancer. He presented with low Hgb. Admitted with acute blood loss anemia from oozing esophageal tumor. Clinical Indicators: 09/11-09/13 Hgb: 5.7-8.5-8.0 09/11 BP: 95/52-107/51 09/13 BP: 74/56-83/47-105/47 09/13 IM: "Acute severe blood loss anemia secondary from gastrointestinal bleed possibly with hypotension." 09/13 CCU: "He did have some episodes of hypotension and we are consulted for ICU placement. Received 3 units of blood, fluid resuscitation. Remains somewhat hypotensive. No pressors required so far." 09/15 CCU: "Oozing from esophageal tumor and lymph node." Treatment: ICU monitoring; 1L 0.9 NS IV bolus x1 on 09/13; 3 units PRBC's Is there an additional diagnosis that is clinically appropriate for this patient? [ x ] Hemorrhagic shock [ ] No additional diagnosis/Not clinically significant [ ] Unable to determine [ ] Other, please specify MTDD
== END 2024-09-15 13:43 | disposition home or self-care (01) | DRG 811 ==
LOC: EC 14:39 → 1SOBS 18:23 → 3SCARD 23:45 → 2SICU 09-13 12:35 → 5NMEDONC 09-14 11:10
PROVIDERS: ADMIT Hospitalist; ATTEND Hospitalist
PROC: 30233N1 Transfusion of Nonautologous Red Blood Cells into Peripheral Vein, Percutaneous Approach (ICD-10-PCS; principal; 2024-09-11)
DX: D62 Acute posthemorrhagic anemia (principal); R57.8 Other shock; C15.9 Malignant neoplasm of esophagus, unspecified; L89.312 Pressure ulcer of right buttock, stage 2; E87.1 Hypo-osmolality and hyponatremia; K21.9 Gastro-esophageal reflux disease without esophagitis; I10 Essential (primary) hypertension; D63.0 Anemia in neoplastic disease; K92.1 Melena; L89.151 Pressure ulcer of sacral region, stage 1; F17.200 Nicotine dependence, unspecified, uncomplicated; F41.9 Anxiety disorder, unspecified; K57.30 Diverticulosis of large intestine without perforation or abscess without bleeding; Z88.6 Allergy status to analgesic agent; Z91.09 Other allergy status, other than to drugs and biological substances; Z79.899 Other long term (current) drug therapy
CPT/HCPCS: 36415; 36430; 71045; 74174; 80048; 80053; 82272; 82728; 83540; 83550; 84484; 85025; 85027; 85610; 85730; 86850; 86900; 86901; 86920; 87324; 93005; 94640; 96361; 96365; 96366; 96367; 96368; 96375; 96376; 99285